=== PATIENT | female | born 1990 | race Caucasian/White ===

== ENCOUNTER 2022-09-17 11:01 | Emergency (ER) | payer BC, SELFPAY ==
[2022-09-17 11:21] VITALS: BP 137/94; PULSE 95; RESP 18; TEMP 36.6; O2SAT 99; BMI 23.0
--- NOTE | 2022-09-17 11:30 | ED_ITS ---
HPI - Female Genitourinary General Time Seen by Provider: 11:30 Date Seen: 09/17/22 Chief complaint: Urogenital Problems, Female Stated complaint: UTI Time Seen by Provider: 09/17/22 11:27 Source: patient, RN notes reviewed and old records reviewed Mode of arrival: ambulatory Limitations: no limitations History of Present Illness HPI Narrative: Toyin is a very pleasant 32-year-old female with a history of Ari's currently on control who comes to the emergency room with 7 days of left flank pain associated with urinary urgency. Patient notes that she had some left flank pain greater than a week ago and then had a day where she had which she thought was urinary urgency but was unable to urinate. She notes that she had a virtual visit on SundaySeptember 10 and at that time was placed on Macrobid for supposed UTI. She did not do a UA at that time. She notes that her symptoms did not enrique except perhaps the discomfort was somewhat improved. and thus she was seen at urgent care on September 14. Her urine was clear but given the fact that she had been treated with antibiotics she was switched to Bactrim and a culture was ordered. She comes to the emergency room today because she is not feeling better. She states she does not feel well. She can as continued left flank discomfort and urinary urgency. She has not noticed any blood in her urine. Yesterday she had a temperature up to 99.9 which she states is high for her. Otherwise no other reported fevers. She denies a history of kidney stones and adamantly denies any possibility of sexually transmitted infections. She denies vomiting diarrhea. She denies a possibility of . She notes some mild discomfort in her school pelvic area but no significant abdominal pain. He is just finishing her. At this time. Unfortunately no culture was done off of the 2nd urine according to the records that I am able to access. 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 Related Data Home Medications Medication Instructions Recorded Confirmed Bifidobacterium animalis 6 mg (5 6 mg PO QDAY 09/14/22 09/14/22 billion cell) capsule bupropion HCl 150 mg 24 hr tablet, 150 mg PO DAILY 09/14/22 09/14/22 extended release cholecalciferol (vitamin D3) 125 5,000 unit PO .As Needed PRN 09/14/22 09/14/22 mcg (5,000 unit) tablet cyanocobalamin (vitamin B-12) 1,000 mcg PO DAILY 09/14/22 09/14/22 1,000 mcg tablet diphenhydramine HCl 50 mg capsule 50 mg PO .Bedtime 09/14/22 09/14/22 ibuprofen 200 mg capsule mg PO .Q6h Prn 09/14/22 09/14/22 levothyroxine 100 mcg capsule mcg PO DAILY 09/14/22 09/14/22 melatonin 5 mg capsule 10 mg PO .Bedtime as needed PRN 09/14/22 09/14/22 nitrofurantoin 100 mg PO 09/14/22 09/14/22 monohydrate/macrocrystals 100 mg capsule phenazopyridine 200 mg tablet 200 mg PO 09/14/22 09/14/22 polyethylene glycol 3350 17 17 g PO .Daily as needed PRN 09/14/22 09/14/22 gram/dose oral powder sertraline 50 mg tablet 75 mg PO DAILY 09/14/22 09/14/22 ubrogepant 100 mg tablet 100 mg PO 09/14/22 09/14/22 zinc sulfate 50 mg zinc (220 mg) 50 mg PO DAILY 09/14/22 09/14/22 capsule Previous Rx's Medication Instructions Recorded norgestimate 0.25 mg-ethinyl 1 tab PO QDAY #84 tabs 08/15/22 estradiol 35 mcg tablet (Joan) sulfamethoxazole 800 1 tab PO BID 5 days #10 tabs 09/14/22 mg-trimethoprim 160 mg tablet (Bactrim DS) Allergies Allergy/AdvReac Type Severity Reaction Status Date / Time amoxicillin Allergy Severe Severe Verified 09/14/22 18:53 stomach pain cefaclor Allergy Mild Rash Verified 09/14/22 18:53 Clavulanate Allergy Severe Severe Uncoded 09/14/22 18:53 stomach pain Gluten Meal Allergy Severe Celiac Uncoded 09/14/22 18:53 disease Barium Allergy Mild Rash Uncoded 09/14/22 18:53 Review of Systems Status of ROS: Reports: 10 or more systems reviewed and unremarkable except as noted in History and below Const: Reports: fever (99.9 yesterday) and fatigue Eyes: Denies: change in vision ENMT: Denies: throat pain, throat swelling or hoarseness Cardio: Denies: chest pain, palpitations or swelling of feet/ankles GI: Denies: abdominal pain, nausea, vomiting or diarrhea : Reports: urinary frequency and urinary urgency; Denies: blood in urine Musculo: Reports: back pain (Left flank) Integ/Breast: Denies: rash Neuro: Denies: headache Endo: Reports: fatigue; Denies: excessive urination Allergy/Immuno: Denies: throat swelling PFSH PFS Medical History Aphthous ulcer Surgical History History of colonoscopy History of tympanostomy tube placement Family History Father Multiple sclerosis Other Alzheimers disease Depression High blood pressure Social History Narrative: Does not drink alcohol Does not use illicit drugs Non-smoker Smoking Status: Never smoker Do you use any of these nicotine containing products: None Second hand tobacco smoke exposure: No How often do you have a drink containing alcohol: never How often do you have six or more drinks on one occasion: Never AUDIT-C Alcohol total score: 0 Non-prescribed substance use: denies use service: No Exam Narrative: Exam Narrative: Toyin is alert and oriented. She does appear to be uncomfortable but does not appear to be toxic ears eyes nose clear neck is supple heart with regular rate and rhythm lungs are clear to auscultation. Abdomen is soft nontender. She does have tenderness with percussion over left CVA. She does have discomfort if I hit the bottom of her left foot the discomfort is in her left flank. No lower extremity edema Const: Vital Signs, click to edit/add: Vital Signs - 24 hr 09/17/22 11:21 Temperature 97.9 F Pulse Rate [Pulse Oximeter] 95 Respiratory Rate 18 Blood Pressure [Ri ght Upper Arm] 137/94 H Pulse Oximetry 99 Oxygen Delivery Me thod Room Air Documenting provider has reviewed patient's vital signs: yes Course Course Hospital Course: Patient presents with the onset of left flank pain and urinary symptoms. She does not really have fever at this time and her vital signs are reassuring but I am wondering if she has partially treated pyelonephritis. Other possibilities with this presentation do include STI but patient is adamant that there is no possibility of such a thing. Kidney stone is also in the differential. Would recommend placement of IV, normal saline 1 L, blood checks to include CBC, comprehensive panel, amylase, lipase, CRP, urinalysis. Ultrasound of the kidney also ordered at this time. Reevaluation(s) Reevaluation #1: Patient informed of normal ultrasound. Will proceed with abdominal CT with contrast given her ongoing flank pain. Reevaluation #2: Patient notes she is improved after Toradol. Vital Signs Vital signs: Initial Vital Signs Temperature 97.9 F 09/17/22 11:21 Temperature Source Temporal Artery Scan 09/17/22 11:21 Pulse Rate 95 09/17/22 11:21 Respiratory Rate 18 09/17/22 11:21 Blood Pressure 137/94 H 09/17/22 11:21 Blood Pressure Mean 108 09/17/22 11:21 Blood Pressure Position Supine 09/17/22 11:21 Pulse Oximetry 99 09/17/22 11:21 Oxygen Delivery Method 09/17/22 11:21 Vital Signs Temperature 97.9 F 09/17/22 11:21 Pulse Rate 95 09/17/22 11:21 Respiratory Rate 18 09/17/22 11:21 Blood Pressure 137/94 H 09/17/22 11:21 Pulse Oximetry 99 09/17/22 11:21 Oxygen Delivery Method 09/17/22 11:21 Temperature 97.9 F 09/17/22 11:21 Pulse Rate 95 09/17/22 11:21 Respiratory Rate 18 09/17/22 11:21 Blood Pressure 137/94 H 09/17/22 11:21 Pulse Oximetry 99 09/17/22 11:21 Oxygen Delivery Method 09/17/22 11:21 MDM - Female Genitourinary MDM Narrative Medical decision making narrative: 1. Left flank pain-no abnormalities noted on ultrasound or CT. Patient certainly describes urinary type symptoms initially and had been treated with Macrobid then switched to Bactrim and now we will make a switch to Cipro as Bactrim is causing her nausea. I do think she may be incomplete treatment of urinary tract infection although I do not not have any proof of that because will culture done previously and no your on the initial treatment. No evidence of abnormal ovary and blood flow was good. Patient denies any possibility of STI as she has never been sexually active. Like her to follow up with her primary MD if she is not improving over the next few days. Of course if she has worsening symptoms return to the emergency room. 2. Disposition-home at this time. She may use ibuprofen or Tylenol as needed for discomfort. Tests done today include blood work with normal WBC and CRP. Urinalysis without evidence of UTI. Abdominal CT without abnormality. Pelvic ultrasound without abnormality Medical Records Attestation: I reviewed the patient's medical records. Lab Data Attestation: I reviewed the patient's lab results. Labs: Lab Results 09/17/22 09/17/22 09/17/22 Range/Units 11:45 12:30 12:30 WBC 5.94 (4.50-11.00) K/uL RBC 4.99 (4.00-5.20) m/uL Hgb 15.2 (12.0-16.0) gm/dL Hct 44.5 (33.0-51.0) % MCV 89 (80-100) fL MCH 31 (26-34) pg MCHC 34 (32-36) gm/dL RDW Coeff of Reema 12.4 (11.5-15.5) % Plt Count 227 (140-440) K/uL Neut % (Auto) 70.7 (42.0-72.0) % Lymph % (Auto) 21.2 (20-44) % [place] % (Auto) 5.9 (0.0-11.0) % Eos % (Auto) 1.7 (0.0-7.0) % Baso % (Auto) 0.3 (0.0-3.0) % Neut # (Auto) 4.20 (1.7-7.0) K/uL Lymph # (Auto) 1.26 (0.90-2.90) K/uL [place] # (Auto) 0.40 (0.00-0.90) K/UL Eos # (Auto) 0.10 (0.00-0.50) K/uL Baso # (Auto) 0.02 (0.00-0.30) K/uL Abs Immat Gran (auto) 0.01 (0.00-0.30) K/uL Imm/Tot Granulo (auto) 0.2 % Sodium 139 (135-149) mmol/L Potassium 4.4 (3.6-5.1) mmol/L Chloride 106 (96-114) mmol/L Carbon Dioxide 25 (20-32) mmol/L BUN 8 (5-24) mg/dL Creatinine 0.9 (0.5-1.5) mg/dL Estimated Creat Clear 75.61 Estimated GFR 88 ml/min Glucose 90 (60-115) mg/dL Calcium 9.0 (8.4-10.6) mg/dL Total Bilirubin 0.6 (0.1-1.5) mg/dL AST 22 (12-35) U/L ALT 19 (4-35) U/L Alkaline Phosphatase 101 (40-150) U/L C-Reactive Protein < 0.5 L (0.5-1.0) mg/dL Total Protein 7.3 (6.0-8.3) g/dL Albumin 4.7 (3.3-5.0) g/dL Amylase 80 (18-89) U/L Lipase 46 (23-300) U/L Urine Color Yellow (Yellow) Urine Appearance Clear (Clear) Urine pH 8.5 (5.0-8.5) Ur Specific [place] 1.020 (1.000-1.030) Urine Protein Negative (Negative) Urine Glucose (UA) Negative (Negative) Urine Ketones Negative (Negative) Urine Blood Trace-intact A (Negative) Urine Nitrite Negative (Negative) Urine Bilirubin Negative (Negative) Urine Urobilinogen 0.2 (0.2-1.0) Ur Leukocyte Esterase Negative (Negative) Urine RBC 0-2 (0-2) Urine WBC 0-2 (0-5) Ur Squamous Epith Cells Moderate A (None-Few) Urine Bacteria None (None) Imaging Data renal us: Attestation: I have reviewed the pertinent imaging results. Radiologist's impression: Right kidney: 9.2 x 3.6 x 4.3 cm. Left kidney: 9.4 x 4.7 x 4.2 cm. Normal echotexture and cortex. No suspicious masses, stones, or hydronephrosis. Bladder: Normal in caliber and appearance. Color Doppler images demonstrate bilateral ureteral jets. IMPRESSION: Unremarkable renal ultrasound. CT scan - abdomen: Attestation: I have reviewed the pertinent imaging results. My impression: No acute findings Radiologist's impression: Uterus: 7 x 4 x 3 cm.? Normal echotexture of the myometrium.? No masses. A 1 cm nabothian cyst present. Endometrium: Transvaginal imaging was performed to better evaluate the endometrium.? Endometrial thickness measures 4 mm.? No sign of endometrial mass or fluid.? Right ovary not visualized secondary to bowel gas. Left ovary 2 x 2 x 1. No ovarian or adnexal masses. Normal arterial and venous blood flow is demonstrated in both ovaries. Cul-de-sac: No significant free fluid.? ? IMPRESSION: Unremarkable pelvic ultrasound. Specifically the left ovaries normal. No finding to explain left-sided pain. Discharge Plan Discharge Clinical Impression: Urinary urgency, Left flank pain Patient Disposition: Home, Self-Care Condition: Improved Additional Instructions: Discontinue Bactrim at this time. We will treat with Cipro for the next 5 days for presumed urinary tract infection. Because we do not have initial urine sample this is going to be challenging to know what bacteria we are dealing with. Recommend follow-up with your primary MD for recheck and of course if you have the onset of fever, worsening symptoms please return to the emergency room. Push fluids as much as possible. I believe your pharmacy closes soon and th erefore I will place this prescription in [facility]. Prescriptions: No Action nitrofurantoin monohyd/m-cryst 100 mg capsule 100 mg PO Label Comments: TAKE 1 CAPSULE BY MOUTH TWICE A DAY FOR 5 DAYS phenazopyridine 200 mg tablet 200 mg PO Label Comments: TAKE 1 TABLET BY MOUTH 3 TIMES A DAY NEEDED WITH OR AFTER MEALS, FOR UP TO 2 DAYS melatonin 5 mg capsule 10 mg PO .Bedtime as needed PRN levothyroxine 100 mcg capsule PO DAILY cholecalciferol (vitamin D3) 125 mcg (5,000 unit) tablet 5,000 unit PO .As Needed PRN zinc sulfate 50 mg zinc (220 mg) capsule 50 mg PO DAILY bupropion HCl 150 mg tablet extended release 24 hr 150 mg PO DAILY sertraline 50 mg tablet 75 mg PO DAILY polyethylene glycol 3350 17 gram/dose powder 17 g PO .Daily as needed PRN ibuprofen 200 mg capsule PO .Q6h Prn diphenhydramine HCl 50 mg capsule 50 mg PO .Bedtime Bifidobacterium animalis 6 mg (5 billion cell) capsule 6 mg PO QDAY cyanocobalamin (vitamin B-12) 1,000 mcg tablet 1,000 mcg PO DAILY Rx Instructions: Hasn't taken for about two months ubrogepant 100 mg tablet 100 mg PO sulfamethoxazole-trimethoprim [Bactrim DS] 800-160 mg tablet 1 tab PO BID 5 Days Qty: 10 0RF norgestimate-ethinyl estradiol [Joan] 0.25-35 mg-mcg tablet 1 tab PO QDAY Qty: 84 1RF Follow Up/Referrals: Domonique Rdz PA-C [Primary Care Provider] - Stand Alone Forms: [facility] Info Instructions
--- NOTE | 2022-09-17 11:38 | CRLHL7_ITS ---
For Patients: As a result of the Century Cures Act, medical imaging exams and procedure reports are released immediately into your electronic medical record. You may view this report before your referring provider. If you have questions, please contact your health care provider. INDICATION: LEFT FLANK PAIN TECHNIQUE: Ultrasound renal and bladder complete. Sweet-scale and color Doppler sonographic images were acquired of the kidneys and urinary bladder. COMPARISON: None. FINDINGS: Right kidney: 9.2 x 3.6 x 4.3 cm. Left kidney: 9.4 x 4.7 x 4.2 cm. Normal echotexture and cortex. No suspicious masses, stones, or hydronephrosis. Bladder: Normal in caliber and appearance. Color Doppler images demonstrate bilateral ureteral jets. IMPRESSION: Unremarkable renal ultrasound. Dictated by Chicho Toscano MD @ 09/17/2022 12:49:16 PM (Electronically Signed)
[2022-09-17 11:58] LABS: Appearance Urine Clear (Clear); Bilirubin Urine Negative (Negative); Blood Urine Trace-intact (Negative); Color Urine Yellow (Yellow); Glucose Urine Negative (Negative); Ketones Urine Negative (Negative); Leukocyte Esterase Urine Negative (Negative); Nitrite Urine Negative (Negative); Protein Urine Negative (Negative); Urobilinogen Urine 0.2 (0.2-1.0); pH Urine 8.5 (5.0-8.5)
[2022-09-17] MEDS: 0.9 % SODIUM CHLORIDE 1000 ml 1,000 ML IV (12:00)
[2022-09-17 12:14] LABS: RBC Urine 0-2 (0-2); Squamous Epithelial Cell Urine Moderate (None-Few); WBC Urine 0-2 (0-5)
--- NOTE | 2022-09-17 13:07 | CRLHL7_ITS ---
For Patients: As a result of the Century Cures Act, medical imaging exams and procedure reports are released immediately into your electronic medical record. You may view this report before your referring provider. If you have questions, please contact your health care provider. HISTORY: Left flank pain. TECHNIQUE: CT abdomen and pelvis with IV contrast. 64 mL Isovue 370 IV. COMPARISON: Renal ultrasound same day. CT abdomen and pelvis 03/19/2021. FINDINGS: Abdomen: No liver lesions. No bile duct dilation. No pancreatic mass or pancreatic duct dilation. Several subcentimeter hypodense lesions in the distal spleen are unchanged. Spleen size is normal. No adrenal nodules. Kidneys enhance symmetrically. No renal mass. No perinephric inflammatory change. No hydronephrosis. No dilated bowel. Appendix is unremarkable. No free fluid. No lymphadenopathy. Abdominal aorta is normal caliber. Pelvis: No lymphadenopathy. Musculoskeletal: Unremarkable. Lower chest: Unremarkable. IMPRESSION: No acute abnormality in the abdomen or pelvis. Please note that all CT scans at this facility use dose modulation, iterative reconstruction, and/or weight-based dosing when appropriate to reduce radiation dose to as low as reasonably achievable. Dictated by Yash Burns MD @ 09/17/2022 3:00:16 PM (Electronically Signed)
[2022-09-17 13:16] LABS: Albumin* 4.7 g/dL (3.3-5.0); Chloride* 106 mmol/L (96-114); Sodium* 139 mmol/L (135-149)
[2022-09-17 13:17] LABS: Potassium* 4.4 mmol/L (3.6-5.1)
[2022-09-17 13:19] LABS: Amylase* 80 U/L (18-89); Basophils Absolute Auto 0.02 K/uL (0.00-0.30); Basophils Percent Auto 0.3 % (0.0-3.0); Carbon Dioxide* 25 mmol/L (20-32); Eosinophils Percent Auto 1.7 % (0.0-7.0); Hematocrit 44.5 % (33.0-51.0); Hemoglobin* 15.2 gm/dL (12.0-16.0); Immature Granulocytes Abs Auto 0.01 K/uL (0.00-0.30); Immature Granulocytes Pct Auto 0.2 %; Lymphocytes Absolute Auto 1.26 K/uL (0.90-2.90); Lymphocytes Percent Auto 21.2 % (20-44); Mean Corpuscular HGB Conc 34 gm/dL (32-36); Mean Corpuscular Hemoglobin 31 pg (26-34); Mean Corpuscular Volume 89 fL (80-100); Monocytes Percent Auto 5.9 % (0.0-11.0); Neutrophils Percent Auto 70.7 % (42.0-72.0); Platelet Count* 227 K/uL (140-440); RDW Coefficient of Variation % 12.4 % (11.5-15.5); Red Blood Count 4.99 m/uL (4.00-5.20); White Blood Count* 5.94 K/uL (4.50-11.00)
[2022-09-17 13:20] LABS: Alanine Aminotransferase* 19 U/L (4-35); Alkaline Phosphatase* 101 U/L (40-150); Aspartate Amino Transferase* 22 U/L (12-35); Bilirubin Total* 0.6 mg/dL (0.1-1.5); Blood Urea Nitrogen* 8 mg/dL (5-24); Creatinine* 0.9 mg/dL (0.5-1.5); Est. Creatinine Clearance* 75.61; Estimated Glomerular Filt Rate 88 ml/min; Glucose* 90 mg/dL (60-115); Lipase* 46 U/L (23-300); Total Protein* 7.3 g/dL (6.0-8.3)
[2022-09-17 13:26] LABS: C Reactive Protein* < 0.5 mg/dL (0.5-1.0); Slide Review Reflex No
--- NOTE | 2022-09-17 15:48 | CRLHL7_ITS ---
For Patients: As a result of the Century Cures Act, medical imaging exams and procedure reports are released immediately into your electronic medical record. You may view this report before your referring provider. If you have questions, please contact your health care provider. INDICATION: Left flank pain. TECHNIQUE: Ultrasound pelvis transabdominal and transvaginal for better assessment or to better visualize the endometrium. Real-time sonographic images with spectral and color Doppler imaging of the ovaries were obtained. COMPARISON: None. FINDINGS: Uterus: 7 x 4 x 3 cm. Normal echotexture of the myometrium. No masses. A 1 cm nabothian cyst present. Endometrium: Transvaginal imaging was performed to better evaluate the endometrium. Endometrial thickness measures 4 mm. No sign of endometrial mass or fluid. Right ovary not visualized secondary to bowel gas. Left ovary 2 x 2 x 1. No ovarian or adnexal masses. Normal arterial and venous blood flow is demonstrated in both ovaries. Cul-de-sac: No significant free fluid. IMPRESSION: Unremarkable pelvic ultrasound. Specifically the left ovaries normal. No finding to explain left-sided pain. Dictated by Maciej Garza MD @ 09/17/2022 5:33:46 PM (Electronically Signed)
[2022-09-17] MEDS: KETOROLAC 15 MG/ML inj IVP (16:00)
== END 2022-09-17 18:00 | disposition home or self-care (01) ==
PROVIDERS: Emergency Provider Family Medicine; PCP Physician Assistant Medical
DX: R10.9 Unspecified abdominal pain (principal); R39.15 Urgency of urination
CPT/HCPCS: 36415; 74177; 76775; 76830; 76856; 80053; 81001; 82150; 83690; 85025; 86140; 87086; 93976; 96374; 99284; 99285; J1885; J7030; Q9967

== ENCOUNTER 2022-09-29 11:20 | Outpatient (CLI) | payer BC, SELFPAY | END 2022-09-29 11:21 | disposition home or self-care (01) | PROVIDERS: PCP Physician Assistant Medical; Visit Provider Physician Assistant Medical | DX: R39.15 Urgency of urination (principal) | CPT/HCPCS: 87086 ==

== ENCOUNTER 2023-04-02 19:36 | Outpatient (CLI) | payer BC, SELFPAY ==
--- NOTE | 2023-04-10 08:58 | W.PM.SLEEP ---
Sleep Study Details Details Interpreting Provider: David Date of Sleep Study: 04/02/23 Sleep Study Details: STUDY TYPE:? Home unattended ? BMI:? 22.9 ORDERING PROVIDER:Cate Monahan INDICATION:? Concerns about sleep apnea ? SLEEP SUMMARY:? 553.5 minutes monitored RESPIRATORY SUMMARY:? AHI 5.1, supine 7.4, left lateral 5.0, right lateral 3.9 Low oxygen 90 No snoring was recorded PERIODIC LIMB MOVEMENTS OF SLEEP:? Not recorded during home study CARDIAC:? Range 50-88, mean 61.8 IMPRESSION:? Mild obstructive sleep apnea with supine position dependency RECOMMENDATION: Depending on patient's symptoms treatment could include CPAP AutoSet 4-17, dental appliance and/or airway expansion surgery.
== END 2023-04-02 19:37 | disposition home or self-care (01) ==
LOC: SLEEP 19:36
PROVIDERS: PCP Family Medicine; Visit Provider Family Medicine
DX: G47.33 Obstructive sleep apnea (adult) (pediatric) (principal)
CPT/HCPCS: 95806

== ENCOUNTER 2023-05-07 14:21 | Outpatient (CLI) | payer BC, SELFPAY | END 2023-05-07 14:22 | disposition home or self-care (01) | LOC: FRMREF 14:22 | PROVIDERS: PCP Family Medicine; Visit Provider Family Medicine | DX: R40.0 Somnolence (principal) | CPT/HCPCS: 86663 ==

== ENCOUNTER 2023-09-14 16:26 | Outpatient (CLI) | payer BC, SELFPAY | END 2023-09-14 16:27 | disposition home or self-care (01) | LOC: NFLDREF 09-17 03:26 | PROVIDERS: PCP Family Medicine; Referring Provider Family Medicine; Visit Provider Family Medicine | DX: R30.0 Dysuria (principal); R09.89 Other specified symptoms and signs involving the circulatory and respiratory systems | CPT/HCPCS: 87086 ==

== ENCOUNTER 2023-10-29 15:29 | Outpatient (CLI) | payer BC, SELFPAY | END 2023-10-29 15:30 | disposition home or self-care (01) | LOC: FRMREF 15:29 | PROVIDERS: PCP Family Medicine; Visit Provider Family Medicine | DX: E03.9 Hypothyroidism, unspecified (principal); R61 Generalized hyperhidrosis | CPT/HCPCS: 84443 ==

== ENCOUNTER 2023-12-17 15:09 | Outpatient (CLI) | payer BC, SELFPAY ==
--- NOTE | 2023-12-17 15:30 | MR_ITS ---
Final Report Patient: HEMA SELF Facility:?[facility] Patient ID:?[id number] Site Patient ID:?[id number]. Site :?[id number] Study:?MRI Head WO-12/17/2023 3:57:05 PM Ordering Physician:ANTONIA Final Report: Indication: Migraine headaches. Technique: Noncontrast sagittal T1, axial FLAIR, T2, diffusion weighted sequences are provided. No comparisons. Findings: The ventricles, sulci and gyri are normal size, shape and contour for age. The midline structures are centrally located with no evidence of shift. There are no suspicious intra or extra-axial fluid collections. No region of restricted diffusion. Expected flow voids in the cavernous carotids and basilar artery. Moderate mucosal thickening within the ethmoid maxillary sinuses with milder inflammatory changes within the remainder of the paranasal sinuses. Impression: 1. No radiographic evidence of acute intracranial abnormalities. 2. Poly sinusitis. Dictated by Bandar Dalal MD @ 12/17/2023 4:46:01 PM (Electronic Signature)
== END 2023-12-17 15:10 | disposition home or self-care (01) ==
LOC: MRI 15:09
PROVIDERS: PCP Family Medicine; Visit Provider Family Medicine
DX: G43.009 Migraine without aura, not intractable, without status migrainosus (principal); R51.9 Headache, unspecified; J32.8 Other chronic sinusitis
CPT/HCPCS: 70551

== ENCOUNTER 2024-03-06 11:49 | Outpatient (CLI) | payer BC, SELFPAY ==
--- OUTSIDE RECORDS SUMMARY | 2024-03-06 11:52 | XMS_ITS | Continuity of Care Document ---
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 [email or web address] Not available 01/01/2024 15:54:03 Plan of Treatment Reminders Order Date Submit Date Provider Last Modified By Organization Details Last Modified Time Details Appointments None record ed. Lab None record ed. Referral None record ed. Procedures None record ed. Surgeries None record ed. Imaging None record ed. Medication Orders None record ed. Patient TargetsNo targets recorded. Patient Instructions Encounter Date Encounter Id Patient Instructions Last Modified By Organization Details Last Modified Time 01/01/2024 [id number] Total treatment time minutes today = 40 Next Visit Plan: Remeasure ROM. Followup again after vacation and once CT results are obtained. LV ROM = 32mm (best 33) Patient/Therapist Goals: tolerate dental appointments. Progress Note Date: 02/13 [email or web address] Not available 01/01/2024 15:52:32 Reason for Referral Neurologist Referral for Epi sodic migraine Referring Physician: Roseanne Shultz, Pain Management, Encounter Date: 12/18/2023 Results Created Date Observation Date Name Description Value Unit Range Abnormal Flag LastModifiedBy Organization Detail LastModifiedTime 03/06/[address], tempo ral bone, w/o contr ast No observ ation record ed. [place] [address], [place], [address], 12/19/2023 11:30:19 01/16/[address], tempo ral bone, w/o contr ast No observ ation record ed. [email or web address] [place] [address], [place], [address], 01/29/2024 09:35:37 Result Notes None recorded. Problems Name Status Onset Date Resolution Date Notes Provider Name and Address Organization Details Recorded Time Pain of right temporomandibu lar joint Active 2022 CLAUDIA MullerT [address], [place], [address], [facility] 3 15:52:15 Limited opening of mandible Active 2022 CLAUDIA MullerT [address], [place], [address], [place] [facility] 3 15:52:24 Jaw pain Active 2022 CLAUDIA MullerT [address], [place], [address], [place] [facility] 3 15:52:29 Episodic migraine Active 2023 Chiari malformation type I ROSEANNE SHULTZ BDS, [place] [address], [place], [address], [place] [facility] 4 09:48:42 Neck pain Active 2023 ROSEANNE SHULTZ BDS, [place] [address], [place], [address], [place] [facility] 4 09:48:27 Limitation of movement of temporomandibu lar joint Active 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 PREETANJALI KATIA, BDS, [place] [address], [place], [address], [place] [facility] 4 09:52:06 Bilateral temporomandibu lar joint pain Active 2023 YAEL GUERRAS, MS [address], [place], [address], [place] [facility] 4 09:52:27 Myofascial pain Active 2023 YEAL GUERRAS, MS [address], [place], [address], [facility] 4 11:30:48 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 Procedures Surgical History Date Name Laterality Status Provider Name and Address Organization Details Recorded Time 01/02/20 CT TMJ completed Luisa monroy [facility] 01/01/2024 18:38:08 01/01/20 78213: Therapeutic Exercise completed CLAUDIA MullerT [address], [place], [address], [facility] 01/01/2024 15:53:17 01/01/20 58153: Manual Therapy completed CLAUDIA MullerT [address], [place], [address], [facility] 01/01/2024 15:53:15 12/20/19 02693 - PT ReEval completed Ella Allen DPT [address], [place], [address], [facility] 12/19/2023 14:50:23 12/20/19 24 77386: Self Care/Home Management Training completed Ella Allen DPT [address], [place], [address], [facility] 12/20/2023 18:57:09 12/20/19 24 20469: Needle insertion(s) without injection(s), 1 or 2 muscle(s) completed Ella Allen DPT [address], [place], [address], [facility] 12/20/2023 18:57:05 12/20/19 24 03628: E-Stim - Direct Contact completed Ella Allen DPT [address], [place], [address], [facility] 12/20/2023 18:58:13 12/20/19 24 85612: Therapeutic Exercise completed Ella Allen DPT [address], [place], [address], [facility] 12/20/2023 18:56:49 12/04/19 24 24302: Therapeutic Exercise completed Ella Allen DPT [address], [place], [address], [facility] 12/04/2023 19:40:30 12/04/19 24 20056: Manual Therapy completed Ella Allen DPT [address], [place], [address], [facility] 12/04/2023 19:40:31 10/31/19 24 13521: Self Care/Home Management Training completed Ella Allen DPT [address], [place], [address], [facility] 10/31/2023 08:46:46 10/31/19 24 99289: Therapeutic Exercise completed Ella Allen DPT [address], [place], [address], [facility] 10/31/2023 08:47:44 10/31/19 24 61112: Neuromuscular Re-Education completed Ella Allen DPT [address], [place], [address], [facility] 10/31/2023 08:46:42 10/31/19 24 86793: Manual Therapy completed Ella Allen DPT [address], [place], [address], [facility] 10/31/2023 08:46:41 10/18/19 24 64865: Self Care/Home Management Training completed Ella Allen DPT [address], [place], [address], [facility] 10/18/2023 20:06:45 10/18/19 24 38419: Therapeutic Exercise completed Ella Allen DPT [address], [place], [address], [facility] 10/18/2023 20:07:23 10/18/19 24 84295: Manual Therapy completed Ella Allen DPT [address], [place], [address], [facility] 10/18/2023 20:07:16 10/02/20 23 02530 - PT Eval Moderate Complexity completed Ella Allen DPT [address], [place], [address], [facility] 10/02/2023 11:10:42 10/02/20 23 40564: Self Care/Home Management Training completed Ella Allen DPT [address], [place], [address], [facility] 10/02/2023 15:48:47 10/02/20 23 53749: Therapeutic Exercise completed CLAUDIA MullerT [address], [place], [address], [place] [facility] 10/02/2023 15:48:57 10/02/20 92067: Manual Therapy completed Ella Allen, DPT [address], [place], [address], [place] [facility] 10/02/2023 15:48:55 09/04/20 12232 - PT Eval Moderate Complexity cancelled Ella Allen, DPT [address], [place], [address], [place] [facility] 09/04/2023 10:22:47 09/04/20 92460: Self Care/Home Management Training cancelled Ella Allen, DPT [address], [place], [address], [place] [facility] 09/03/2023 16:22:18 09/04/20 30088: Therapeutic Exercise cancelled Ella Allen, DPT [address], [place], [address], [place] [facility] 09/03/2023 16:22:18 09/04/20 64099: Neuromuscular Re-Education cancelled Ella Allen, DPT [address], [place], [address], [place] [facility] 09/03/2023 16:22:18 09/04/20 48181: Manual Therapy cancelled Ella Allen, DPT [address], [place], [address], [place] [facility] 09/03/2023 16:22:18 09/04/20 39015: Therapeutic Activities cancelled Ella Allen, DPT [address], [place], [address], [place] [facility] 09/03/2023 16:22:18 Other completed Ella Allen, DPT [address], [place], [address], [facility] 10/02/2023 15:40:04 Imaging Results None recorded. Procedure Notes None recorded. Medical Equipment None Reported. Allergies Allergen ID Allergen Name Allergen Category Reaction Reaction Severity Criticality Documentation Date Start Date Code Code System Note Provider Name and Address Organization Details Recorded Time 50953 barium sulfate medicatio n abdominal pain moderate Not available 10/02/2023 1331 RxNorm Ella Hovda, DPT [address], [place], [address], [facility] 3 15:39:21 84768 Ceclor medicatio n rash moderate Not available 10/02/2023 30093 5 RxNorm Ella Hovda, DPT [address], [place], [address], [facility] 3 15:39:21 24354 Augmentin medicatio n abdominal pain severe Not available 10/02/2023 77110 2 RxNorm Ella Hovda, DPT [address], [place], [address], [facility] 3 15:39:21 62261 wheat gluten extract food Not available Not available Not available 12/18/2023 52218 81 RxNorm Lin Mayco [facility] 4 18:01:00 Medications Name Sig Start Date Stop Date Status Note LastModified by Organization Details LastModified Time methocarbam ol 500 mg tablet TAKE 3 TABLETS BY MOUTH EVERY 6 HOURS UNTIL GONE 11/20 completed Not Available Not Available Not Available doxycycline hyclate 100 mg capsule TAKE 1 CAPSULE BY MOUTH TWICE A DAY active Not Available Not Available No t Available famotidine 10 mg tablet 1 tablet every day by oral route. 2022 active Not Available Not Available Not Avai lable trazodone 50 mg tablet TAKE 1/2 TO 1 TABLET BY MOUTH ONCE DAILY. active Not Available Not Available No t Available azithromyci n 250 mg tablet TAKE 2 TABLETS BY MOUTH TODAY, THEN TAKE 1 TABLET DAILY FOR 4 DAYS DIRECTED 11/20 completed Not Available Not Available Not Available citalopram 10 mg tablet TAKE 1 TABLET BY MOUTH ONCE DAILY. 11/20 completed Not Available Not Available Not Available phenazopyri dine 200 mg tablet TAKE 1 TABLET BY MOUTH 3 TIMES A DAY NEEDED WITH OR AFTER MEALS, FOR UP TO 2 DAYS 12/17 completed Not Available Not Available Not Available prednisone 20 mg tablet TAKE 2 TABLETS BY MOUTH EVERY DAY FOR 5 DAYS 11/20 completed Not Available Not Available Not Available sulfamethox azole 800 mg-trimetho prim 160 mg tablet TAKE ONE TABLET BY MOUTH TWICE DAILY FOR 5 DAYS 11/20 completed Not Available Not Available Not Available levothyroxi ne 100 mcg tablet TAKE 1 TABLET BY MOUTH EVERY MORNING active Not Available Not Available No t Available propranolol 10 mg tablet TAKE 1 TABLET BY MOUTH THREE TIMES DAILY NEEDED FOR ANXIETY active Not Available Not Available No t Available citalopram 20 mg tablet TAKE 1 TABLET BY MOUTH EVERY DAY 11/20 completed Not Available Not Available Not Available famotidine 20 mg tablet TAKE 1 TABLET BY MOUTH DAILY active Not Available Not Available No t Available trazodone 100 mg tablet TAKE 1 TABLET BY MOUTH AT BEDTIME NEEDED FOR INSOMNIA active Not Available Not Available No t Available benzonatate 100 mg capsule TAKE 1 CAPSULE BY MOUTH TWICE A DAY NEEDED FOR COUGH 11/20 completed Not Available Not Available Not Available sertraline 25 mg tablet TAKE ONE TABLET BY MOUTH DAILY WITH 50MG TABLET (TOTAL DAILY DOSE 75MG) 11/20 completed Not Available Not Available Not Available Drysol Dab-O-Matic 20 % topical solution 1 APPLIC TOPICALLY TWICE A WEEK NEEDED FOR EXCESSIVE SWEATING active Not Available Not Available No t Available sertraline 50 mg tablet TAKE 1 TABLET BY MOUTH DAILY WITH 25MG FOR TOTAL DAILY DOSE OF 75MG PER DAY 11/20 completed Not Available Not Available Not Available eletriptan 40 mg tablet TAKE 1 TABLET BY MOUTH NEEDED FOR MIGRAINE. MAY REPEAT 1 TIME IN 2 OR MORE HOURS IF NEEDED 11/20 completed Not Available Not Available Not Available cyclobenzap rine 5 mg tablet TAKE 1 TABLET BY MOUTH EVERY DAY AT DINNER FOR 30 DAYS 02/04 completed Not Available Not Available Not Available bupropion HCl XL 150 mg 24 hr tablet, extended release TAKE ONE TABLET BY MOUTH IN THE MORNING active Not Available Not Available No t Available nitrofurant oin monohydrate /macrocryst als 100 mg capsule TAKE 1 CAPSULE BY MOUTH TWICE A DAY FOR 5 DAYS 11/20 completed Not Available Not Available Not Available levonorgest rel-ethinyl estrad 11/20 completed Not Available Not Available Not Available diazepam 2022 active Not Available Not Available Not Avai lable L norgest/E estradiol-E estrad 0.15 mg-30 mcg (84)/10 mcg(7) tabs,3mos TAKE 1 TABLET DAILY FOLLOWING THE ORDER ON BLISTER CARDS active Not Available Not Available No t Available desvenlafax ine succinate ER 50 mg tablet,exte nded release 24 hr TAKE ONE TABLET BY MOUTH ONCE DAILY 11/20 completed Not Available Not Available Not Available desvenlafax ine succinate ER 100 mg tablet,exte nded release 24 hr TAKE 1 TABLET BY MOUTH EVERY DAY active Not Available Not Available No t Available Tirosint 100 mcg capsule TAKE 1 CAPSULE BY MOUTH EVERY MORNING BEFORE BREAKFAST ON EMPTY STOMACH NEEDS APPT active Not Available Not Available No t Available vilazodone 20 mg tablet PLEASE SEE ATTACHED FOR DETAILED DIRECTION S 11/20 completed Not Available Not Available Not Available vilazodone 10 mg tablet WEEK 1: TAKE 1 TABLET BY MOUTH ONCE DAILY ( WITH SERTRALIN E 50MG TABLET) THEN START NEXT DOSE 11/20 completed Not Available Not Available Not Available desvenlafax ine ER 50 mg tablet,exte nded release 24 hr TAKE ONE TABLET BY MOUTH ONCE DAILY 11/20 completed Not Available Not Available Not Available bupropion HCl 150 mg tablet,12 hr sustained-r elease(smok ing deterrent) TAKE 1 TABLET BY MOUTH TWICE A DAY . SEPARATE DOSES BY AT LEAST 8 HOURS. APPOINTME NT NEEDED 11/20 completed Not Available Not Available Not Available Joan 0.25 mg-35 mcg tablet TAKE 1 TABLET BY MOUTH EVERY DAY 11/20 completed Not Available Not Available Not Available EluRyng 0.12 mg-0.015 mg/24 hr vaginal ring 1 VAG RING VAGINALLY EVERY [address] FOR ~4 WEEKS, THEN INSERT NEW RING 12/17 completed Not Available Not Available Not Available Ubrelvy 100 mg tablet TAKE 1 TAB BY MOUTH 1 TIME NEEDED. MAY REPEAT ANOTHER DOSE IN 2 HRS MAX 2 TABS/24 HOURS. active Not Available Not Available No t Available Vitals None Recorded Social History Question Answer Notes LastModified by Organizat ion Details LastModified Time Tobacco Smoking Status Never Smoker Ella Allen, DPT [address] [facility] [address], [place], [address], [facility] 10/02/2023 15:40:04 What Is Your Level Of Alcohol Consumption? None Information not available 10/02/2023 What Is Your Level Of Caffeine Consumption? Moderate Information not available 10/02/2023 Are You Currently Employed? Yes Information not available 10/02/2023 What Type Of Diet Are You Following? GLUTENFREE Information not available 10/02/2023 Do You Reside In Or Have You Traveled To An Area Where Ebola Virus Transmission Is Active? No Information not available 10/02/2023 What Is The Highest Grade Or Level Of School You Have Completed Or The Highest Degree You Have Received? 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 (0=no Pain, 10=pain As Bad As You Can Imagine) 0 Information not available 10/02/2023 What Number Best Describes How, During The Past Week, Pain Has Interfered With Your Enjoyment Of Life? (0=does Not Interfere, 10= Completely Interferes) 0 Information not available 10/02/2023 What Number Best Describes How, During The Past Week, Pain Has Interfered With Your General Activity? (0=does Not Interfere, 10=completely Interferes) 0 Information not available 10/02/2023 How Did Primary Problem Begin? 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 0 Information not available 10/02/2023 What Is Your Relationship Status? Single Information not available 10/02/2023 Do You Feel Stressed (tense, Restless, Nervous, Or Anxious, Or Unable To Sleep At Night)? [id number] Information not available 10/02/2023 Do You Use Any Illicit Or Recreational Drugs? No Information not available 10/02/2023 How Many Years Have You Smoked Tobacco? 0 Information not available 10/02/2023 Sex: Female Functional Status Question Answer Note LastModified by Organizat ion Details LastModified Time What is your exercise level? Occasional Information not available 10/02/2023 Mental Status None recorded. Family History Relationship Description Onset Age of this Age Resolved Age Notes Father Heart disease 63 Father Rheumatoid arthritis 50 Father Multiple sclerosis Medical History Condition Response Allergies/Hayfever Y Anxiety Disorder Y Autoimmune disease Y Other N Anemia Y Acid Reflux (GERD) Y Migraines Y Obstructive Sleep Apnea Y Thyroid Problems Y Depression Y Gynecological HistoryNo gynecological history recorded. Obstetrics History GPAL:G 0 P 0 0 0 0 Immunizations Vaccine Type Date Status Provider Name and Address Organization Details Recorded Time SARS-COV-2 (COVID-19) vaccine, UNSPECIFIED 09/15/2022 completed Ella Allen DPT [address], [address], [facility] 10/02/2023 15:40:04 Influenza, seasonal, injectable 08/15/2022 completed Ella Allen DPT [address], [address], [facility] 10/02/2023 15:40:04 Past Encounters Encounter ID Performer Location Encounter Start Date Encounter Closed Date Diagnosis/Indication Diagnosis SNOMED-CT Code [id number] JEF Muller [address] [place] [address] 12/04/2023 18:43:09 12/04/2023 19:55:44 Bilateral temporomandibular joint pain 8338019973725 9105 Episodic migraine 756684 5577287 06 Jaw pain 700067194 Limitation of movement of temporomandibular joint 85119179 Limited op ening of mandible 801460676 Neck pain 29464010 Pain of ri ght temporomandibular joint 7136258293130 9107 [id number] ROSEANNE SHULTZ, BDS, MS [place] [address] [place] [address] 12/18/2023 17:54:52 12/18/2023 18:43:49 Pain of right temporomandibular joint 7469357368924 9107 Bilateral temporomandibular joint pain 9117537074961 9105 Episodic migraine 918617 4351428 06 Limited op ening of mandible 016441312 Neck pain 24186811 Limitation of movement of temporomandibular joint 57878092 Myofascial pain 25310911 9 [id number] Ella Allen, DPT [place] [address] [place], [place] [address] 12/20/2023 18:08:05 12/20/2023 18:53:08 Bilateral temporomandibular joint pain 6069812868561 9105 Episodic migraine 543340 7446306 06 Jaw pain 554239547 Limitation of movement of temporomandibular joint 45642372 Limited op ening of mandible 930780003 Myofascial pain 61158900 9 Neck pain 58696385 Pain of ri ght temporomandibular joint 0287264266154 9107 [id number] Ella Allen, DPT [place] [address] [place] [address] 01/01/2024 14:40:47 01/01/2024 15:57:55 Bilateral temporomandibular joint pain 8628125257041 9105 Episodic migraine 670002 6362032 06 Jaw pain 999967505 Limitation of movement of temporomandibular joint 39415914 Limited op ening of mandible 585646825 Myofascial pain 89093205 9 Neck pain 06209206 Pain of ri ght temporomandibular joint 4024668722259 9107 Health Concerns Section Related Observation LastModified by Organization Detai ls LastModified Time None Recorded Concern Status LastModified by Organization Details LastModified Time None Recorded Payers Encounter Date Sequence Insurance Name Policy Number Policy Monae Covered Member ID Monae Member ID Guarantor Name 01/01/2024 1 [facility] [id number] Toyin Talley [id number] Toyin Gerri Notes Date Note Type Note Provider Name and Address Organization Details Recorded Time 01/01/2024 text/html HPI Notes: Pt reports her R masseter relaxed after DN last session but her L was more sore and is swollen along with sensitivity on the inner cheek. Ella Allen, DPT [address] [facility] [address], [place], [address], [facility] 01/01/2024 15:54:12 OBGyn Episode No OBEpisode recorded.
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
--- OUTSIDE RECORDS SUMMARY | 2024-03-06 11:53 | XMS_ITS | Continuity of Care Document ---
Author Organization [place] - [facility], [place] Address [address] [place] [address] Care Team Providers Care Policy Value Calculator Name Role Phone MAHTUR, SARAH Referring Provider Assessment Encounter Date Assessment Date Assessment LastModified by Organization Details LastModified Time 12/20/2023 12/20/2023 Reevaluation performed today to update and measure objective findings, modify goals as noted and modify POC frequency and duration. POC was modified today. Discussion of progress and new plan with patient with patient agreement. Patient is progressing with not much improvement yet. Her pain has been increased over the past month leading to more limitations in jaw opening and tolerance to chewing/speakin g. She is working with myself and Dr. Shultz now as well with a CT of her TMJs pending and recent head MRI showing inflamed sinuses. I am hopeful the results of all these efforts will provide more relief over the next month and we will continue PT to work on her remaining goals. Frequency: will be 2x/month, tapering as able for a total of 4 additional visits over 2 months. [email or web address] Not available 12/20/2023 19:01:26 Plan of Treatment Reminders Order Date Submit Date Provider Last Modified By Organization Details Last Modified Time Details Appointments None record ed. Lab None record ed. Referral None record ed. Procedures None record ed. Surgeries None record ed. Imaging None record ed. Medication Orders None record ed. Patient Targets Encounter Date Encounter Id Patient Goals Patient Target Last Modified By Organization Details Last Modified Time penitentiary goals (to be met in 6 weeks):*Patient will report improved score on JFWL by at least 10%, indicating clinically significant improvement in self-reported level of function to allow patient to safely achieve pre-onset level of function. 3/6=*Patient will demonstrate the ability to open jaw to 35mm IO without compensations, noticeable difficulty or pain greater than 2/10 to be allow for adequate jaw function for chewing food of all types and consistencies without compensation or difficulty. 3/6= [email or web address] Not available 12/19/2023 14:50:34 Patient Instructions Encounter Date Encounter Id Patient Instructions Last Modified By Organization Details Last Modified Time 12/20/2023 [id number] Total treatment time minutes today = 40 Next Visit Plan: Remeasure ROM. How was dry needling? LV ROM = 20mm (best 33) Patient/Therapist Goals: tolerate dental appointments. Progress Note Date: 02/13 [email or web address] Not available 12/20/2023 18:59:17 Reason for Referral Neurologist Referral for Epi sodic migraine Referring Physician: Roseanne Shultz, Pain Management, Encounter Date: 12/18/2023 Results Created Date Observation Date Name Description Value Unit Range Abnormal Flag LastModifiedBy Organization Detail LastModifiedTime 11/21/19 24 XR, ortho panto gram No observ ation record ed. Not Available 11/27/2023 17:07:45 12/19/[address], tempo ral bone, w/o contr ast No observ ation record ed. [place] [id number] [facility] [address], [place], [address], 12/19/2023 11:30:19 01/16/[address], tempo ral bone, w/o contr ast No observ ation record ed. [email or web address] [place] [id number] [facility] [address], [place], [address], 01/29/2024 09:35:37 Result Notes None recorded. Problems Name Status Onset Date Resolution Date Notes Provider Name and Address Organization Details Recorded Time Pain of right temporomandibu lar joint Active 2022 Ella Allen DPT [address] [facility] [address], [place], [address], [facility] 15:52:15 Limited opening of mandible Active 2022 Ella Allen, DPT [address], [place], [address], [place] [facility] 3 15:52:24 Jaw pain Active 2022 Ella Allen, DPT [address], [place], [address], [place] [facility] 3 15:52:29 Episodic migraine Active 2023 Chiari malformation type I YAEL GUERRAS, [place] [address], [place], [address], [facility] 4 09:48:42 Neck pain Active 2023 YAEL GUERRAS, [place] [address], [place], [address], [facility] 4 09:48:27 Limitation of movement of temporomandibu lar joint Active 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 YAEL GUERRAS, [place] [address], [place], [address], [place] [facility] 4 09:52:06 Bilateral temporomandibu lar joint pain Active 2023 YAEL GUERRAS, [place] [address], [place], [address], [facility] 4 09:52:27 Myofascial pain Active 2023 YAEL GUERRAS, MS [address], [place], [address], [place] [facility] 4 11:30:48 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 Procedures Surgical History Date Name Laterality Status Provider Name and Address Organization Details Recorded Time 01/02/20 [facility]/01/2024 18:38:08 01/01/20 69171: Therapeutic Exercise completed Ella Allen DPT [address], [place], [address], [facility] 01/01/2024 15:53:17 01/01/20 78349: Manual Therapy completed Ella Allen DPT [address], [place], [address], [facility] 01/01/2024 15:53:15 12/20/19 10161 - PT ReEval completed lEla Allen DPT [address], [place], [address], [facility] 12/19/2023 14:50:23 12/20/19 63821: Self Care/Home Management Training completed Ella Allen DPT [address], [place], [address], [facility] 12/20/2023 18:57:09 12/20/19 24 05810: Needle insertion(s) without injection(s), 1 or 2 muscle(s) completed Ella Allen DPT [address], [place], [address], [facility] 12/20/2023 18:57:05 12/20/19 24 49320: E-Stim - Direct Contact completed Ella Allen DPT [address], [place], [address], [facility] 12/20/2023 18:58:13 12/20/19 24 17564: Therapeutic Exercise completed Ella Hovda, DPT [address], [place], [address], [place] [facility] 12/20/2023 18:56:49 12/04/19 24 59761: Therapeutic Exercise completed Ella Allen, DPT [address], [place], [address], [place] [facility] 12/04/2023 19:40:30 12/04/19 24 58973: Manual Therapy completed Ella Allen, DPT [address], [place], [address], [place] [facility] 12/04/2023 19:40:31 10/31/19 24 58781: Self Care/Home Management Training completed Ella Allen, DPT [address], [place], [address], [place] [facility] 10/31/2023 08:46:46 10/31/19 24 20489: Therapeutic Exercise completed Ella Allen, DPT [address], [place], [address], [place] [facility] 10/31/2023 08:47:44 10/31/19 24 57946: Neuromuscular Re-Education completed Ella Allen DPT [address], [place], [address], [place] [facility] 10/31/2023 08:46:42 10/31/19 24 35146: Manual Therapy completed Ella Allen, DPT [address], [place], [address], [place] [facility] 10/31/2023 08:46:41 10/18/19 24 33237: Self Care/Home Management Training completed Ella Allen, DPT [address], [place], [address], [place] [facility] 10/18/2023 20:06:45 10/18/19 24 80427: Therapeutic Exercise completed Ella Hovda, DPT [address], [place], [address], [place] [facility] 10/18/2023 20:07:23 10/18/19 24 95311: Manual Therapy completed Ella Allen, DPT [address], [place], [address], [place] [facility] 10/18/2023 20:07:16 10/02/20 23 90549 - PT Eval Moderate Complexity completed Ella Allen, DPT [address], [place], [address], [place] [facility] 10/02/2023 11:10:42 10/02/20 23 43302: Self Care/Home Management Training completed Ella Allen, DPT [address], [place], [address], [place] [facility] 10/02/2023 15:48:47 10/02/20 60811: Therapeutic Exercise completed Ella Allen, DPT [address], [place], [address], [place] [facility] 10/02/2023 15:48:57 10/02/20 06056: Manual Therapy completed Ella Allen, DPT [address], [place], [address], [place] [facility] 10/02/2023 15:48:55 09/04/20 23 01793 - PT Eval Moderate Complexity cancelled Ella Allen, DPT [address], [place], [address], [place] [facility] 09/04/2023 10:22:47 09/04/20 23 87609: Self Care/Home Management Training cancelled Ella Allen, DPT [address], [place], [address], [place] [facility] 09/03/2023 16:22:18 09/04/20 23 19342: Therapeutic Exercise cancelled Ella Allen, DPT [address], [place], [address], [facility] 09/03/2023 16:22:18 09/04/20 23 88906: Neuromuscular Re-Education cancelled Ella Allen, DPT [address], [place], [address], [facility] 09/03/2023 16:22:18 09/04/20 23 69404: Manual Therapy cancelled Ella Allen, DPT [address], [place], [address], [facility] 09/03/2023 16:22:18 09/04/20 69610: Therapeutic Activities cancelled Ella Allen, DPT [address], [place], [address], [facility] 09/03/2023 16:22:18 Other completed Ella Allen, DPT [address], [place], [address], [facility] 10/02/2023 15:40:04 Imaging Results None recorded. Procedure Notes None recorded. Medical Equipment None Reported. Allergies Allergen ID Allergen Name Allergen Category Reaction Reaction Severity Criticality Documentation Date Start Date Code Code System Note Provider Name and Address Organization Details Recorded Time 53965 barium sulfate medicatio n abdominal pain moderate Not available 10/02/2023 1331 RxNorm Ella Heberta, DPT [address], [place], [address], [facility] 3 15:39:21 02039 Ceclor medicatio n rash moderate Not available 10/02/2023 52730 5 RxNorm Ella Heberta, DPT [address], [place], [address], [facility] 3 15:39:21 51180 Augmentin medicatio n abdominal pain severe Not available 10/02/2023 08599 2 RxNorm Ella Dangelopaigemabel, DPT [address] [facility] [address], [place], [address], [facility] 3 15:39:21 44165 wheat gluten extract food Not available Not available Not available 12/18/2023 93549 81 RxNorm Lin Mao [facility] 4 18:01:00 [...] Smoking Status Never Smoker Ella Allen, DPT [address] [facility] [address], [place], [address], [facility] 10/02/2023 15:40:04 [...] Or The Highest Degree You Have Received? 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 After A Garey Placement Information not available 10/02/2023 How Many Children Do You Have? 0 Information not available 10/02/2023 What Is Your Relationship Status? Single Information not available 10/02/2023 Do You Feel Stressed (tense, Restless, Nervous, Or Anxious, Or Unable To Sleep At Night)? [id number] Information not available 10/02/2023 Do You Use [...] vaccine, UNSPECIFIED 09/15/2022 completed Ella Allen DPT [address] [facility] [address], [place], [address], [facility] 10/02/2023 15:40:04 Influenza, seasonal, injectable 08/15/2022 completed Ella Allen DPT [address] [facility] [address], [place], [address], [facility] 10/02/2023 15:40:04 Past Encounters Encounter ID Performer Location Encounter Start Date Encounter Closed Date Diagnosis/Indication Diagnosis SNOMED-CT Code [id number] JEF Muller e [address] [place] [id number] 12/04/2023 18:43:09 12/04/2023 19:55:44 Bilateral temporomandibular joint pain 4496460595973 9105 Episodic migraine 459375 8596958 06 Jaw pain 108630155 Limitation of movement of temporomandibular joint 97274456 Limited op ening of mandible 414491279 Neck pain 36899921 Pain of ri ght temporomandibular joint 1024759480156 9107 [id number] ROSEANNE SHULTZ BDS, MS Herman e [address] [place] [id number] 12/18/2023 17:54:52 12/18/2023 18:43:49 Pain of right temporomandibular joint 4761375944451 9107 Bilateral temporomandibular joint pain 3236557528098 9105 Episodic migraine 001282 9185129 06 Limited op ening of mandible 482638212 Neck pain 46845351 Limitation of movement of temporomandibular joint 71640949 Myofascial pain 43820968 9 [id number] JEF Muller e [address] [place] [id number] 12/20/2023 18:08:05 12/20/2023 18:53:08 Bilateral temporomandibular joint pain 0697975302671 9105 Episodic migraine 036798 4951231 06 Jaw pain 620368592 Limitation of movement of temporomandibular joint 58601686 Limited op ening of mandible 381150871 Myofascial pain 65274392 9 Neck pain 81021698 Pain of ri ght temporomandibular joint 1781677668238 9107 Health Concerns Section Related Observation LastModified by Organization Detai ls LastModified Time None Recorded Concern Status LastModified by Organization Details LastModified Time None Recorded Payers Encounter Date Sequence Insurance Name Policy Number Policy Monae Covered Member ID Monae Member ID Guarantor Name 12/20/2023 1 [facility] [id number] Toyin Talley [id number] Toyin Talley Notes Date Note Type Note Provider Name and Address Organization Details Recorded Time 12/20/2023 text/html HPI Notes: Pt reports having a brain MRI due to continued headaches and nothing was found other than inflamed sinuses. Doing a course of 10 days of antibiotics. Still having more pain in R neck and jaw with limited opening. Will schedule a TMJ CT with insurance approval. Patient Reported Outcome [id number] (out of 80): 10/02=17. 3/=20 Ella Allen DPT [address] [facility] [address], [place], [address], [facility] 12/20/2023 19:01:44 OBGyn Episode No OBEpisode recorded.
== END 2024-03-06 11:50 | disposition home or self-care (01) ==
PROVIDERS: PCP Family Medicine; Visit Provider Family Medicine
DX: E03.8 Other specified hypothyroidism (principal); E06.3 Autoimmune thyroiditis
CPT/HCPCS: 84443

== ENCOUNTER 2024-05-23 12:15 | Outpatient (CLI) | payer BC, SELFPAY ==
--- OUTSIDE RECORDS SUMMARY | 2024-05-29 14:43 | XMS_ITS | Data Portability ---
Author Organization [place] [facility] Address [facility] [address] [place] [address] Care Team Providers Care Registration Manager Name Role Phone SARAH MATHUR Referring Provider [phone] Assessment Encounter Date Assessment Date Assessment LastModified [...] documentation was 40. Not available 12/19/2023 11:32:10 12/20/2023 12/20/2023 Reevaluation performed today to update and measure objective findings, modify goals as noted and modify POC frequency and duration. POC was modified today. Discussion of progress and new plan with patient with patient agreement. Patient is progressing with not much improvement yet. Her pain has been increased over the past month leading to more limitations in jaw opening and tolerance to chewing/speaking. She is working with myself and Dr. [...] 2 months. [email or web address] Not available 12/20/2023 19:01:26 01/01/2024 01/01/2024 Good response to DN R masseter with relaxation and improved opening from 22 last session to 32 today, unfortunately swelling has occurred on the L side that is slowly improving and no signs of infection are present - will continue to monitor and did not dry needle today. [email or web address] Not available 01/01/2024 15:54:03 01/02/2024 01/02/2024 Patient is prese nt today for CBCT scan. Patient was not seen by the rendering physician today. Cost of care was reviewed at today's visit. [email or web address] Not available 01/02/2024 17:03:25 02/05/2024 02/05/2024 This real time telemedicine visit with video was accomplished today at either patient preference or out of medical necessity due to community issues. The patient was verbally identified and written consent was obtained prior to our session. These sessions are not being recorded. Due to the nature of telemedicine the ability to do physical assessment was limited to what can be accomplished over a video and by patient instruction. Those limits are understood by the patient and myself. Impression is based on history, available information and physical findings accomplished with video assist. Today I reviewed the pathophysiology of this disorder, potential contributing factors and treatment options with the patient. We reviewed the findings of her CT. Findings include 1. 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 The findings are indicative of degenerative changes. 2. The narrow joint spaces may be related to disc displacement. If the patient remains symptomatic, an MRI is suggested for evaluation of the disc locations. The radiographic features are consistent with pansinusitis. For complete details regarding her imaging see the radiology report in their EHR. I have recommended her to see her PCP. Migraines have improved with propranolol. Diagnosis and treatment options were reviewed at today's appointment. I am continuing to recommend self-care and splint therapy at this time. The focus of care will be continued, gradual rehabilitation and pain management with occasional oral appliance adjustments as needed. Toyin will work with PT. [facility] policy requirements were shared with her today. She will work with her dentist and her primary care physician to get the necessary documentation. I suggested that (s)he return for follow-up care in 6 weeks. History today was obtained from the patient. The patient has 5+ diagnoses they would like to address. Their symptoms are chronic. This case is moderate complexity because of multiple diagnoses with chronic symptoms. Data reviewed included procedure documentation. Discussion with treatment team members after visit was necessary. Risk of complications include disease progression were discussed. Today time spent may have included a review of past records, history taking, review of diagnoses, contributing factors, treatment plan, diagnostic testing, prognosis, expectations, risks and complications of treatment/no treatment, discussions with other providers and completing documentation was 20. Not available 02/06/2024 13:14:52 Plan of Treatment Reminders Order Date Submit Date Provider Last Modified By Organization Details Last Modified Time Details Appointments None recorded. Lab None recorded. Referral neurologist referral 2023 024 Not available 11:31:11 Procedures None recorded. Surgeries None recorded. Imaging CT, temporal bone, w/o contrast 2023 024 [place] [facility], [place], [address], 11:31:11 Medication Orders None recorded. Patient Targets Encounter Date Encounter Id Patient Goals Patient Target Last Modified By Organization Details Last Modified Time long-term goals (to be met in 6 weeks):*Patient [...] By Organization Details Last Modified Time 12/18/2023 [id number] trigger point injection information Not available 12/19/2023 11:31:11 Three Jaw Exercises Not available 12/19/2023 11:31:11 12/20/2023 [id number] Total treatment time minutes today = 40 Next Visit Plan: Remeasure ROM. How was dry needling? LV ROM = 20mm (best 33) Patient/Therapist Goals: tolerate dental appointments. Progress Note Date: 02/13 [email or web address] Not available 12/20/2023 18:59:17 01/01/2024 [id number] Total treatment time minutes today = 40 [...] Range Abnormal Flag LastModifiedBy Organization Detail LastModifiedTime 11/28/19 24 11/28/2023 oral appli ance prepa ratio n* Type of appliance mandib ular stabil izatio n applia nce Not Available [facility] [address], [place], [address], 11/28/2023 09:55:51 11/21/19 24 XR, ortho panto gram No observ ation record ed. Not Available 11/27/2023 17:07:45 12/19/[address], tempo ral bone, w/o contr ast No observ ation record ed. [place] [address], [place], [address], 12/19/2023 11:30:19 01/16/[address], tempo ral bone, w/o contr ast No observ ation record ed. [email or web address] [place] [address], [place], [address], 01/29/2024 09:35:37 Result Notes None recorded. Problems Name Status Onset Date Resolution Date Notes Provider Name and Address Organization Details Recorded Time Pain of right temporomandibu lar joint Active 2022 CLAUDIA MullerT [address], [place], [address], [facility] 3 15:52:15 Limited opening of mandible Active 2022 CLAUDIA MullerT [address], [place], [address], [facility] 3 15:52:24 Jaw pain Active 2022 CLAUDIA MullerT [address], [place], [address], [facility] 3 15:52:29 Episodic migraine Active 2023 Chiari malformation type I ROSEANNE SHULTZ BDS, [place] [address], [place], [address], [facility] 4 09:48:42 Neck pain Active 2023 ROSEANNE SHULTZ BDS[place] [address], [place], [address], [facility] 4 09:48:27 Limitation of movement of temporomandibu lar joint Active 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 ROSEANNE SHULTZ BDS, [place] [address], [place], [address], [facility] 4 09:52:06 Bilateral temporomandibu lar joint pain Active 2023 ROSEANNE SHULTZ BDS, MS [address], [place], [address], [facility] 4 09:52:27 Myofascial pain Active 2023 ROSEANNE SHULTZ BDS, MS [address], [place], [address], [facility] 4 11:30:48 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 Procedures Surgical History Date Name Laterality Status Provider Name and Address Organization Details Recorded Time 01/02/20 CT TMJ completed Luisa monroy [facility] 01/01/2024 18:38:08 01/01/20 81379: Therapeutic Exercise completed Ella Allen DPT [address], [place], [address], [facility] 01/01/2024 15:53:17 01/01/20 37899: Manual Therapy completed Ella Allen DPT [address], [place], [address], [facility] 01/01/2024 15:53:15 12/20/19 24 63583 - PT ReEval completed Ella Allen DPT [address], [place], [address], [facility] 12/19/2023 14:50:23 12/20/19 24 09339: Self Care/Home Management Training completed Ella Allen DPT [address], [place], [address], [facility] 12/20/2023 18:57:09 12/20/19 24 18766: Needle insertion(s) without injection(s), 1 or 2 muscle(s) completed Ella Allen DPT [address], [place], [address], [facility] 12/20/2023 18:57:05 12/20/19 24 63827: E-Stim - Direct Contact completed Ella Allen DPT [address], [place], [address], [facility] 12/20/2023 18:58:13 12/20/19 24 78949: Therapeutic Exercise completed Ella Allen DPT [address], [place], [address], [facility] 12/20/2023 18:56:49 12/04/19 24 06161: Therapeutic Exercise completed Ella Allen DPT [address], [place], [address], [facility] 12/04/2023 19:40:30 12/04/19 24 22129: Manual Therapy completed Ella Allen, DPT [address], [place], [address], [facility] 12/04/2023 19:40:31 10/31/19 24 47304: Self Care/Home Management Training completed Ella Allen CLAUDIAT [address], [place], [address], [place] [facility] 10/31/2023 08:46:46 10/31/19 24 30463: Therapeutic Exercise completed Ella Allen, DPT [address], [place], [address], [place] [facility] 10/31/2023 08:47:44 10/31/19 24 57300: Neuromuscular Re-Education completed Ella Allen, DPT [address], [place], [address], [place] [facility] 10/31/2023 08:46:42 10/31/19 24 51739: Manual Therapy completed Ella Allen, DPT [address], [place], [address], [place] [facility] 10/31/2023 08:46:41 10/18/19 24 43549: Self Care/Home Management Training completed Ella Allen, CLAUDIAT [address], [place], [address], [place] [facility] 10/18/2023 20:06:45 10/18/19 24 90309: Therapeutic Exercise completed Ella Allen, DPT [address], [place], [address], [place] [facility] 10/18/2023 20:07:23 10/18/19 24 94097: Manual Therapy completed Ella Allen, DPT [address], [place], [address], [place] [facility] 10/18/2023 20:07:16 10/02/20 23 34212 - PT Eval Moderate Complexity completed Ella Allen, DPT [address], [place], [address], [place] [facility] 10/02/2023 11:10:42 10/02/20 23 87622: Self Care/Home Management Training completed Ella Allen, DPT [address], [place], [address], [facility] 10/02/2023 15:48:47 10/02/20 89457: Therapeutic Exercise completed Ella Allen, DPT [address], [place], [address], [facility] 10/02/2023 15:48:57 10/02/20 81242: Manual Therapy completed Ella Allen, DPT [address], [place], [address], [facility] 10/02/2023 15:48:55 09/04/20 70415 - PT Eval Moderate Complexity cancelled Ella Allen, DPT [address], [place], [address], [facility] 09/04/2023 10:22:47 09/04/20 99753: Self Care/Home Management Training cancelled Ella Allen, DPT [address], [place], [address], [facility] 09/03/2023 16:22:18 09/04/20 00117: Therapeutic Exercise cancelled Ella Allen, DPT [address], [place], [address], [facility] 09/03/2023 16:22:18 09/04/20 84725: Neuromuscular Re-Education cancelled Ella Allen, DPT [address], [place], [address], [facility] 09/03/2023 16:22:18 09/04/20 49927: Manual Therapy cancelled Ella Allen, DPT [address], [place], [address], [facility] 09/03/2023 16:22:18 09/04/20 23 32012: Therapeutic Activities cancelled Ella Allen, DPT [address], [place], [address], [place] [facility] 09/03/2023 16:22:18 Other completed Ella Allen, DPT [address], [place], [address], [facility] 10/02/2023 15:40:04 Imaging Results Imaging Date Name Status LastModified by Organization Details LastModified Time 11/21/2023 XR, orthopantogram completed Inform ation not available 11/27/2023 17:07:45 12/19/2023 CT, temporal bone, w/o contrast completed [place] [address], [place], [address], 12/19/2023 11:30:19 01/16/2024 CT, temporal bone, w/o contrast completed [email or web address] [facility] [facility] [address], [place], [address], 01/29/2024 09:35:37 Procedure Notes None recorded. Medical Equipment None Reported. Allergies Allergen ID Allergen Name Allergen Category Reaction Reaction Severity Criticality Documentation Date Start Date Code Code System Note Provider Name and Address Organization Details Recorded Time 71924 barium sulfate medicatio n abdominal pain moderate Not available 10/02/2023 1331 RxNorm Ella Heberta, DPT [address], [place], [address], [place] [facility] 3 15:39:21 45698 Ceclor medicatio n rash moderate Not available 10/02/2023 67255 5 RxNorm Ella Hovda, DPT [address], [place], [address], [place] [facility] 3 15:39:21 08144 Augmentin medicatio n abdominal pain severe Not available 10/02/2023 60613 2 RxNorm Ella Heberta, DPT [address] [facility] [address], [place], [address], [facility] 3 15:39:21 97328 wheat gluten extract food Not available Not available Not available 12/18/2023 57398 81 RxNorm Lin Mao [facility] 4 18:01:00 [...] and Address Organization Details Last Updated DateTime 157.48 cm 24.3 kg/m2 79053.7 9 g 75 /min 125 mm[Hg] 87 mm[Hg] Lin Mao [facility] 4 18:00:20 Date Recorded Body height Body mass index (BMI) Body weight Provider Name and Address Organization Details Last Updated DateTime 01/02/2024 157.48 cm 24.3 kg/m2 19892.79 g Aida Phan [facility] 01/02/2024 17:03:05 Date Recorded Body height Provider Name an d Address Organization Details Last Updated DateTime 02/05/[address]24 157[address] [facility] 02/05/2024 17:30:15 Social History Question Answer Notes LastModified by Organizat ion Details LastModified Time Tobacco Smoking Status Never Smoker Ella Allen, DPT [address] [facility] [address], [place], [address], [place] [facility] [...] Or The Highest Degree You Have Received? 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 After A [place] Placement Information not available 10/02/2023 How Many Children Do You Have? 0 Information not available 10/02/2023 What Is Your Relationship Status? Single Information not available 10/02/2023 Do You Feel Stressed (tense, Restless, Nervous, Or Anxious, Or Unable To Sleep At Night)? [id number] Information not available 10/02/2023 Do You Use Any Illicit Or Recreational Drugs? No Information not available 10/02/2023 How Many Years Have You Smoked Tobacco? 0 Information not available 10/02/2023 Sex: Unknown Functional Status Question Answer Note LastModified by [...] UNSPECIFIED 09/15/2022 completed Ella Allen DPT [address], [address], [facility] 10/02/2023 15:40:04 Influenza, split virus, trivalent, preservative 08/15/2022 susan Allen DPT [address], [address], [facility] 10/02/2023 15:40:04 Past Encounters Encounter ID Performer Location Encounter Start Date Encounter Closed Date Diagnosis/Indication Diagnosis SNOMED-CT Code [id number] Ella Allen DPT [facility] [address] [place] [address] 10/02/2023 13:40:53 10/02/2023 15:25:12 Pain of right temporomandibular joint 01476324744 791366 Limited op ening of mandible 376197851 Jaw pain 301449217 [id number] Ella Allen DPT [facility] [address] [place] [address] 10/18/2023 18:12:01 10/18/2023 19:02:44 Jaw pain 682918142 Limited op ening of mandible 458475040 Pain of ri ght temporomandibular joint 83813977512 335929 [id number] Ella Allen, [place] [address] [place] [address] 10/31/2023 07:56:37 10/31/2023 08:46:13 Jaw pain 185724507 Pain of ri ght temporomandibular joint 03292122950 437919 Limited op ening of mandible 128626108 [id number] ROSEANNE SHULTZ BDS, [place] [address] [place] [address] 11/20/2023 18:23:23 11/20/2023 19:28:56 Myofascial pain 332341233 Limited op ening of mandible 806503234 Episodic migraine 737446 74325 4106 Neck pain 18811370 Limitation of movement of temporomandibular joint 40046640 Bilateral temporomandibular joint pain 00104014970 255836 [id number] Ella Allen, [place] [address] [place] [address] 12/04/2023 18:43:09 12/04/2023 19:55:44 Bilateral temporomandibular joint pain 31107217855 825065 Episodic migraine 417583 74207 4106 Jaw pain 096764627 Limitation of movement of temporomandibular joint 42523183 Limited op ening of mandible 826428335 Neck pain 17781621 Pain of ri ght temporomandibular joint 46714384138 209778 [id number] YAEL GUERRAS, [facility] [address] [place] [address] 12/18/2023 17:54:52 12/18/2023 18:43:49 Pain of right temporomandibular joint 15667934667 479551 Bilateral temporomandibular joint pain 74287544447 029859 Episodic migraine 626282 09641 4106 Limited op ening of mandible 247345397 Neck pain 35347760 Limitation of movement of temporomandibular joint 89038329 Myofascial pain 82404684 9 [id number] Ella Allen [place] [address] [address] 12/20/2023 18:08:05 12/20/2023 18:53:08 Bilateral temporomandibular joint pain 65799922439 287377 Episodic migraine 839145 23984 4106 Jaw pain 409036288 Limitation of movement of temporomandibular joint 71421344 Limited op ening of mandible 695007514 Myofascial pain 40556812 9 Neck pain 21007964 Pain of ri ght temporomandibular joint 23238540849 569845 [id number] Ella Allen [place] [address] [address] 01/01/2024 14:40:47 01/01/2024 15:57:55 Bilateral temporomandibular joint pain 50108391227 659018 Episodic migraine 967292 91505 4106 Jaw pain 481874930 Limitation of movement of temporomandibular joint 50965390 Limited op ening of mandible 150640362 Myofascial pain 91617532 9 Neck pain 03305464 Pain of ri ght temporomandibular joint 34704785283 287360 [id number] [address],[facility] [place] [address] 01/02/2024 16:53:13 01/02/2024 17:00:31 Bilateral temporomandibular joint pain 17581994172 [id number] ROSEANNE SHULTZ BDS, [place] [address] [address] 02/05/2024 17:27:50 02/05/2024 19:05:23 Pain of right temporomandibular joint 60969634043 733386 Bilateral temporomandibular joint pain 37572972022 469014 Jaw pain 957179448 Myofascial pain 72774161 9 Episodic migraine 095132 11622 4106 Limited op ening of mandible 431634505 Neck pain 42353495 Limitation of movement of temporomandibular joint 43779590 Bilateral temporomandibular joint articular disc disorder 42348337166 242681 Health Concerns Section Related Observation LastModified by Organization Detai ls LastModified Time None Recorded Concern Status LastModified by Organization Details LastModified Time None Recorded Advance Directives Directive None Recorded Payers Encounter Date Sequence Insurance Name Policy Number Policy Monae Covered Member ID Monae Member ID Guarantor Name 12/18/2023 1 [facility] [id number] Toyin Corleyer [id number] Toyin Gerri 12/20/2023 1 [facility] [id number] Toyin Gerri [id number] Toyin Gerri 01/01/2024 1 [facility] [id number] Toyin Gerri [id number] Toyin Gerri 01/02/2024 1 [facility] [id number] Toyin Gerri [id number] Toyin Gerri 02/05/2024 1 [facility] [id number] Toyin Gerri [id number] Toyin Gerri Notes Date Note Type Note [...] would like a better understanding of the [facility] policy for the splint coverage. Ella [...] therapy twice a month. 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 Recently, she was hit with a volleyball on her left side of face that gave her a black eye. ROSEANNE SHULTZ BDS, [place] [address] [facility] [address], [place], [address], [facility] 12/19/2023 11:32:55 12/20/2023 text/html HPI Notes: Pt reports having a brain MRI due to continued headaches and nothing was found other than inflamed sinuses. Doing a course of 10 days of antibiotics. Still having more pain in R neck and jaw with limited opening. Will schedule a TMJ CT with insurance approval. Patient Reported Outcome [id number] (out of 80): 10/02=17. 12/19=20 Ella Allen, JEF [address] [facility] [address], [place], [address], [facility] 12/20/2023 19:01:44 01/01/2024 text/html HPI Notes: Pt reports her R masseter relaxed after DN last session but her L was more sore and is swollen along with sensitivity on the inner cheek. Ella Dangelopaigemabel, DPT [address] [facility] [address], [place], [address], [facility] 01/01/2024 15:54:12 01/02/2024 text/html HPI Notes: Get nt present in clinic for CT scan of bilateral TMJ. Took bilateral CT scan and sent scan to [facility] to be read. [facility] 01/02/2024 17:50:30 02/05/2024 text/html HPI Notes: gener al HPI for [...] Prior Treatment: physical therapy Prior opinion dentist As part of today's telehealth visit Verbal Consent to treat was obtained from the patient. The patient has been informed of what a Telehealth visit is: Telehealth is the practice of using telecommunication technology to evaluate, diagnose and care for patients at a distance. This telehealth visit is medically necessary due to patient choice, distance or to prevent the community spread of Covid-19. The patient was at home, while the provider was in the clinic. The patient has been informed that there is a potential for data loss due to technical failure. Security Measures: Multiple layers of technical and administrative security controls have been implemented to safeguard patient information. Unique, password protected visit IDs will be provided for each session. Communications are established using 256-bit TLS encryption and all shared content is encrypted with AES-256 encryption. Toyin is present to review her CT image, her jaw feels tired, not as much pain. She did have dry needling which was helpful. Headaches have improved. She is using her Propranolol nightly. ROSEANNE SHULTZ BDS, [place] [address], [place], [address], [facility] 02/06/2024 13:16:01 OBGyn Episode No OBEpisode recorded.
== END 2024-05-23 12:16 | disposition home or self-care (01) ==
LOC: NFLDREF 05-29 14:42
PROVIDERS: PCP Family Medicine; Referring Provider Family Medicine; Visit Provider Physician Assistant
DX: R35.0 Frequency of micturition (principal)
CPT/HCPCS: 87086

== ENCOUNTER 2024-06-10 11:10 | Outpatient (CLI) | payer BC, SELFPAY ==
--- OUTSIDE RECORDS SUMMARY | 2024-06-10 11:13 | XMS_ITS | Data Portability ---
Author Organization [place] [facility] [place] [facility] [address] [place] [address] Care Team Providers Care Show Jumping Instructor Name Role Phone SARAH MATHUR Referring Provider [...] as needed. Toyin will work with PT. [facility] policy requirements were shared with her today. [...] CT, temporal bone, w/o contrast 2023 [address] [place] Yadi Barba [facility], [place], [address], 11:31:11 Medication Orders None recorded. Patient Targets [...] By Organization Details Last Modified Time 12/18/2023 [id number] trigger point injection information Not available 12/19/2023 11:31:11 Three Jaw Exercises Not available 12/19/2023 11:31:11 12/20/2023 [id number] Total treatment time minutes today = 40 Next Visit Plan: Remeasure ROM. How was dry needling? LV ROM = 20mm (best 33) Patient/Therapist Goals: tolerate dental appointments. Progress Note Date: 02/13 [email or web address] Not available 12/20/2023 18:59:17 01/01/2024 [id number] Total treatment time minutes today = 40 [...] Name Description Value Unit Range Abnormal Flag Note LastModifiedBy Organization Detail LastModifiedTime 11/28/19 24 11/28/2023 oral appli ance prepa ratio n* Type of appliance mandib ular stabil izatio n applia nce Not Available [place] [address], [place], [address], 11/28/2023 09:55:51 11/21/19 24 XR, ortho panto gram No observ ation record ed. Not Available 2023 17:07:45 12/19/[address], tempo ral bone, w/o contr ast No observ ation record ed. [place] [id number], [place], [address], 12/19/2023 11:30:19 01/16/[address], tempo ral bone, w/o contr ast No observ ation record ed. [email or web address] [place] [address], [place], [address], 01/29/2024 09:35:37 Result Notes None recorded. Problems Name Problem SNOMED Code Status Onset Date Resolution Date Notes Provider Name and Address Organization Details Recorded Time Pain of right temporom andibula r joint 58988843083 992201 Active 2022 Ella Allen DPT [address], [address], [facility] 3 15:52:15 Limited opening of mandible 326690194 Active 2022 [facility] [address] [facility] [address], [address], [facility] 3 15:52:24 Jaw pain 174087293 Active 2022 Ella Allen DPT [address] [facility] [address], [address], [facility] 3 15:52:29 Episodic migraine 06364404178 4106 Active 2023 Chiari malformat ion type I ROSEANNE SHULTZ, BDS, [place] [address] [address], [place], [address], [facility] 4 09:48:42 Neck pain 79129638 Active 2023 ROSEANNE SHULTZ BDS, MS [address] [facility] [address], [place], [address], [facility] 4 09:48:27 Limitati on of movement of temporom andibula r joint 55945111 Active 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 ROSEANNE SHULTZ BDS, MS [address] [facility] [address], [place], [address], [facility] 4 09:52:06 Bilatera l temporom andibula r joint pain 66657213238 733381 Active 2023 ROSEANNE SHULTZ BDS, MS [address] [facility] [address], [place], [address], [facility] 4 09:52:27 Myofasci al pain 231894555 Active 2023 ROSEANNE SHULTZ BDS, MS [address] [facility] [address], [place], [address], [facility] 4 11:30:48 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 Procedures Surgical History Date Name Laterality Status Provider Name and Address Organization Details Recorded Time 01/02/20 CT TMJ completed Luisa monroy [facility] 01/01/2024 18:38:08 01/01/20 14513: Therapeutic Exercise completed Ella Allen DPT [address] [facility] [address], [place], [address], [facility] 01/01/2024 15:53:17 01/01/20 24 67329: Manual Therapy completed Ella Allen DPT [address], [place], [address], [facility] 01/01/2024 15:53:15 12/20/19 24 29517 - PT ReEval completed Ella Allen DPT [address], [place], [address], [facility] 12/19/2023 14:50:23 12/20/19 24 71205: Self Care/Home Management Training completed Ella Allen DPT [address], [place], [address], [facility] 12/20/2023 18:57:09 12/20/19 24 69917: Needle insertion(s) without injection(s), 1 or 2 muscle(s) completed Ella Allen DPT [address], [place], [address], [facility] 12/20/2023 18:57:05 12/20/19 24 87789: E-Stim - Direct Contact completed Ella Allen DPT [address], [place], [address], [facility] 12/20/2023 18:58:13 12/20/19 24 46431: Therapeutic Exercise completed CLAUDIA MullerT [address], [place], [address], [facility] 12/20/2023 18:56:49 12/04/19 24 91440: Therapeutic Exercise completed Ella Allen, DPT [address], [place], [address], [facility] 12/04/2023 19:40:30 12/04/19 24 25344: Manual Therapy completed Ella Hovda, DPT [address], [place], [address], [place] [facility] 12/04/2023 19:40:31 10/31/19 24 36688: Self Care/Home Management Training completed Ella Allen, DPT [address], [place], [address], [place] [facility] 10/31/2023 08:46:46 10/31/19 24 67906: Therapeutic Exercise completed Ella Allen, DPT [address], [place], [address], [place] [facility] 10/31/2023 08:47:44 10/31/19 24 96470: Neuromuscular Re-Education completed Ella Allen, DPT [address], [place], [address], [place] [facility] 10/31/2023 08:46:42 10/31/19 24 31257: Manual Therapy completed Ella Allen, DPT [address], [place], [address], [place] [facility] 10/31/2023 08:46:41 10/18/19 24 06305: Self Care/Home Management Training completed Ella Allen, DPT [address], [place], [address], [place] [facility] 10/18/2023 20:06:45 10/18/19 24 01029: Therapeutic Exercise completed Ella Allen, DPT [address], [place], [address], [place] [facility] 10/18/2023 20:07:23 10/18/19 24 50005: Manual Therapy completed Ella Allen, DPT [address], [place], [address], [place] [facility] 10/18/2023 20:07:16 10/02/20 23 33917 - PT Eval Moderate Complexity completed Ella Allen, DPT [address], [place], [address], [place] [facility] 10/02/2023 11:10:42 10/02/20 05078: Self Care/Home Management Training completed Ella Allen, DPT [address], [place], [address], [facility] 10/02/2023 15:48:47 10/02/20 02639: Therapeutic Exercise completed Ella Allen, DPT [address], [place], [address], [facility] 10/02/2023 15:48:57 10/02/20 36481: Manual Therapy completed Ella Allen, DPT [address], [place], [address], [facility] 10/02/2023 15:48:55 09/04/20 10510 - PT Eval Moderate Complexity cancelled Ella Allen, DPT [address], [place], [address], [facility] 09/04/2023 10:22:47 09/04/20 79260: Self Care/Home Management Training cancelled Ella Allen, DPT [address], [place], [address], [facility] 09/03/2023 16:22:18 09/04/20 98846: Therapeutic Exercise cancelled Ella Allen, DPT [address], [place], [address], [facility] 09/03/2023 16:22:18 09/04/20 45363: Neuromuscular Re-Education cancelled Ella Allen, DPT [address], [place], [address], [facility] 09/03/2023 16:22:18 09/04/20 23 19822: Manual Therapy cancelled Ella Allen, DPT [address] [facility] [employer] [address], [place], [address], [facility] 09/03/2023 16:22:18 09/04/20 23 23763: Therapeutic Activities cancelled Ella Allen, DPT [address] [facility], [place], [address], [facility] 09/03/2023 16:22:18 Other completed Ella Allen, DPT [address] [facility], [place], [address], [facility] 10/02/2023 15:40:04 Imaging Results Imaging Date Name Status LastModified by Organization Details LastModified Time 11/21/2023 XR, orthopantogram completed Inform ation not available 11/27/2023 17:07:45 12/19/2023 CT, temporal bone, w/o contrast completed [place] [address], [place], [address], 12/19/2023 11:30:19 01/16/2024 CT, temporal bone, w/o contrast completed [email or web address] [place] [address], [place], [address], 01/29/2024 09:35:37 Procedure Notes None recorded. Medical Equipment None Reported. Allergies Allergen ID Allergen Name Allergen Category Reaction Reaction Severity Criticality Documentation Date Start Date Code Code System Note Provider Name and Address Organization Details Recorded Time 94756 barium sulfate medicatio n abdominal pain moderate Not available 10/02/2023 1331 RxNorm Ella Allen, DPT [address], [place], [address], [facility] 15:39:21 75885 Ceclor medicatio n rash moderate Not available 10/02/2023 09448 5 RxNorm Ella Heberta, DPT [address] [facility] [address], [place], [address], [facility] 3 15:39:21 48573 Augmentin medicatio n abdominal pain severe Not available 10/02/2023 23175 2 RxNorm Ella Heberta, DPT [address] [facility] [address], [place], [address], [facility] 3 15:39:21 69128 wheat gluten extract food Not available Not available Not available 12/18/2023 51275 81 RxNorm Lin Mao [facility] [...] Last Updated DateTime 157.48 cm 24.3 kg/m2 35748.7 9 g 75 /min 125 mm[Hg] 87 mm[Hg] [facility] 18:00:20 Date Recorded Body height Body mass index (BMI) Body weight Provider Name and Address Organization Details Last Updated DateTime 01/02/2024 157.48 cm 24.3 kg/m2 15892.79 g Aida Phan [place] [facility] 01/02/2024 17:03:05 Date Recorded Body height Provider Name an d Address Organization Details Last Updated DateTime 02/05/2024 157.48 cm Leobardo Dumont [place] [facility] 02/05/2024 17:30:15 Social History Question Answer Notes LastModified by Organizat ion Details LastModified Time Tobacco Smoking Status Never Smoker Ella Allen, DPT [address] [facility] [address], [place], [address], [facility] [...] Or The Highest Degree You Have Received? 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 After A [place] Placement Information not available 10/02/2023 How Many Children Do You Have? 0 Information not available 10/02/2023 What Is Your Relationship Status? Single Information not available 10/02/2023 Do You Feel Stressed (tense, Restless, Nervous, Or Anxious, Or Unable To Sleep At Night)? [id number] Information not available 10/02/2023 Do You Use [...] Father Multiple sclerosis Medical History Condition Response Anxiety Disorder Y Allergies/Hayfever Y Autoimmune disease Y Other N Acid Reflux (GERD) Y Migraines Y Thyroid Problems Y Depression Y Anemia Y Obstructive Sleep Apnea Y Gynecological HistoryNo gynecological history recorded. Obstetrics History GPAL:G 0 P 0 0 0 0 Immunizations Vaccine Type Date Status Provider Name and Address Organization Details Recorded Time SARS-COV-2 (COVID-19) vaccine, UNSPECIFIED 09/15/2022 susan Allen DPT [address] [place] [address], [address], [facility] 10/02/2023 15:40:04 Influenza, split virus, trivalent, preservative 08/15/2022 completed Ella Allen DPT [address] [place] [address], [address], [facility] 10/02/2023 15:40:04 Past Encounters Encounter ID Performer Location Encounter Start Date Encounter Closed Date Diagnosis/Indication Diagnosis SNOMED-CT Code [id number] Ella Allen DPT [place] [address] [place] [address] 10/02/2023 13:40:53 10/02/2023 15:25:12 Pain of right temporomandibular joint 51630098457 543280 Limited op ening of mandible 178378974 Jaw pain 763707483 [id number] Ella Allen, [place] [address] [place] [address] 10/18/2023 18:12:01 10/18/2023 19:02:44 Jaw pain 687928038 Limited op ening of mandible 276838042 Pain of ri ght temporomandibular joint 88798685156 465756 [id number] Ella Allen, [place] [address] [place] [address] 10/31/2023 07:56:37 10/31/2023 08:46:13 Jaw pain 513311331 Pain of ri ght temporomandibular joint 97108775644 244784 Limited op ening of mandible 091558301 [id number] ROSEANNE SHULTZ BDS, [place] [address] [place] [address] 11/20/2023 18:23:23 11/20/2023 19:28:56 Myofascial pain 168197224 Limited op ening of mandible 163446244 Episodic migraine 604863 74450 4106 Neck pain 35043556 Limitation of movement of temporomandibular joint 16360735 Bilateral temporomandibular joint pain 41222942957 [id number] Ella Allen, [place] [address] [place] [address] 12/04/2023 18:43:09 12/04/2023 19:55:44 Bilateral temporomandibular joint pain 33082318154 205923 Episodic migraine 977671 07832 4106 Jaw pain 916687991 Limitation of movement of temporomandibular joint 99398554 Limited op ening of mandible 165669194 Neck pain 13120173 Pain of ri ght temporomandibular joint 03161854215 675043 [id number] ROSEANNE SHULTZ BDS, [facility] [address] [place] [address] 12/18/2023 17:54:52 12/18/2023 18:43:49 Pain of right temporomandibular joint 93416491445 369179 Bilateral temporomandibular joint pain 37248240171 103580 Episodic migraine 024715 00146 4106 Limited op ening of mandible 793728811 Neck pain 44615662 Limitation of movement of temporomandibular joint 52255086 Myofascial pain 25613850 9 [id number] Ella Allen, [place] [address] [place] [address] 12/20/2023 18:08:05 12/20/2023 18:53:08 Bilateral temporomandibular joint pain 49875277205 229993 Episodic migraine 388634 96328 4106 Jaw pain 709584471 Limitation of movement of temporomandibular joint 37443995 Limited op ening of mandible 497555416 Myofascial pain 08536724 9 Neck pain 67055964 Pain of ri ght temporomandibular joint 48228676014 399929 [id number] Ella Allen, [place] [address] [place] [address] 01/01/2024 14:40:47 01/01/2024 15:57:55 Bilateral temporomandibular joint pain 98553996214 625468 Episodic migraine 397875 40168 4106 Jaw pain 467096575 Limitation of movement of temporomandibular joint 89354796 Limited op ening of mandible 198163196 Myofascial pain 53734239 9 Neck pain 25498646 Pain of ri ght temporomandibular joint 22016323057 735924 [id number] [facility] [address] [place] [address] 01/02/2024 16:53:13 01/02/2024 17:00:31 Bilateral temporomandibular joint pain 18752208123 108260 [id number] ROSEANNE SHULTZ BDS, [place] [address] [place] [address] 02/05/2024 17:27:50 02/05/2024 19:05:23 Pain of right temporomandibular joint 65567825148 958812 Bilateral temporomandibular joint pain 00530570931 459831 Jaw pain 400838524 Myofascial pain 73001248 9 Episodic migraine 343021 73446 4106 Limited op ening of mandible 316249931 Neck pain 61959580 Limitation of movement of temporomandibular joint 84076838 Bilateral temporomandibular joint articular disc disorder 94012090938 205738 Health Concerns Section Related Observation LastModified by Organization Detai ls LastModified Time None Recorded Concern Status LastModified by Organization Details LastModified Time None Recorded Advance Directives Directive None Recorded Payers Encounter Date Sequence Insurance Name Policy Number Policy Monae Covered Member ID Monae Member ID Guarantor Name 12/18/2023 1 [employer] [id number] Toyin Gerri [id number] Toyin Gerri 12/20/2023 1 [employer] [id number] Toyin Gerri [id number] Toyin Gerri 01/01/2024 1 [employer] [id number] Toyin Gerri [id number] Toyin Gerri 01/02/2024 1 [employer] [id number] Toyin Gerri [id number] Toyin Gerri 02/05/2024 1 [employer] [id number] Toyin Gerri [id number] Toyin Gerri Notes Date Note Type Note [...] would like a better understanding of the [facility] policy for the splint coverage. Ella stated [...] therapy twice a month. 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 Recently, she was hit with a volleyball on her left side of face that gave her a black eye. ROSEANNE SHULTZ BDS, [place] [address] [facility] [address], [place], [address], [facility] 12/19/2023 11:32:55 [...] Reported Outcome JFLS-8 (out of 80): 10/02=17. 3/7=20 Ella Allen, CLAUDIAT [address] [facility] [address], [place], [address], [facility] 12/20/2023 19:01:44 01/01/2024 text/html HPI Notes: Pt reports her R masseter relaxed after DN last session but her L was more sore and is swollen along with sensitivity on the inner cheek. Ella Allen, CLAUDIAT [address] [facility] [address], [place], [address], [facility] 01/01/2024 15:54:12 01/02/2024 text/html HPI Notes: Patie nt present in clinic for CT scan of bilateral TMJ. Took bilateral CT scan and sent scan to [facility] to be read. [facility] 01/02/2024 17:50:30 [...] and all shared content is encrypted with [employer]-256 encryption. Toyin is present to review her CT image, her jaw feels tired, not as much pain. She did have dry needling which was helpful. Headaches have improved. She is using her Propranolol nightly. ROSEANNE SHULTZ BDS, MS [address] [facility] [address], [place], [address], [facility] 02/06/2024 13:16:01 OBGyn Episode No OBEpisode recorded.
== END 2024-06-10 11:11 | disposition home or self-care (01) ==
LOC: FRMREF 11:11
PROVIDERS: PCP Family Medicine; Visit Provider Family Medicine
DX: Z01.818 Encounter for other preprocedural examination (principal); E03.8 Other specified hypothyroidism; D50.9 Iron deficiency anemia, unspecified; E06.3 Autoimmune thyroiditis
CPT/HCPCS: 84443; 87086

== ENCOUNTER 2024-06-20 06:12 | Day surgery (SDC) | payer BC, SELFPAY ==
[2024-06-20] VITALS (49 sets, daily range): BP systolic 109–143; BP diastolic 64–98; PULSE 63–86; RESP 11–22; TEMP 36.1–37.2; O2SAT 82–99; BMI 25.0
--- OUTSIDE RECORDS SUMMARY | 2024-06-20 06:15 | XMS_ITS | Data Portability ---
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 Montalvo now as well with a CT of [...] as needed. Toyin will work with PT. [facility] policy requirements were shared with her [...] CT, temporal bone, w/o contrast 2023 024 [place] Yadi Barba [facility], [place], [address], 11:31:11 Medication Orders None recorded. Patient Targets Encounter Date Encounter Id Patient Goals Patient Target Last Modified By Organization Details Last Modified Time group home goals (to be met in 6 weeks):*Patient [...] By Organization Details Last Modified Time 12/18/2023 [id number] trigger point injection information Not available 12/19/2023 11:31:11 Three Jaw Exercises Not available 12/19/2023 11:31:11 12/20/2023 [id number] Total treatment time minutes today = 40 Next Visit Plan: Remeasure ROM. How was dry needling? LV ROM = 20mm (best 33) Patient/Therapist Goals: tolerate dental appointments. Progress Note Date: 02/13 [email or web address] Not available 12/20/2023 18:59:17 01/01/2024 [id number] Total treatment time minutes today = 40 Next Visit Plan: Remeasure ROM. Followup again after vacation and once CT results are obtained. LV ROM = 32mm (best 33) Patient/Therapist Goals: tolerate dental appointments. Progress Note Date: 02/13 [email or web address] Not available 01/01/2024 15:52:32 Reason for Referral Neurologist Referral for Epi sodic migraine Referring Physician: Roseanne Montalvo, Pain Management, Encounter Date: 12/18/2023 Results Created Date Observation Date Name Description Value Unit Range Abnormal Flag Note LastModifiedBy Organization Detail LastModifiedTime 11/28/19 24 11/28/2023 oral appli ance prepa ratio n* Type of appliance mandib ular stabil izatio n applia nce Not Available [place] [address], [place], [address], 11/28/2023 09:55:51 11/21/19 24 XR, ortho panto gram No observ ation record ed. Not Available 2023 17:07:45 12/19/[address], tempo ral bone, w/o contr ast No observ ation record ed. [place] [address], [place], [address], 12/19/2023 11:30:19 01/16/[address], tempo ral bone, w/o contr ast No observ ation record ed. [email or web address] [place] [address], [place], [address], 01/29/2024 09:35:37 Result Notes None recorded. Problems Name Problem SNOMED Code Status Onset Date Resolution Date Notes Provider Name and Address Organization Details Recorded Time Pain of right temporom andibula r joint 72030751610 691398 Active 2022 Ella Allen DPT [address], [address], [facility] 3 15:52:15 Limited opening of mandible 004342344 Active 2022 [facility] [address], [address], [facility] 3 15:52:24 Jaw pain 892967580 Active 2022 [facility]47 [facility] [address], [address], [facility] 3 15:52:29 Episodic migraine 47966041058 4106 Active 2023 Chiari malformat ion type I ROSEANNE MONTALVO, [place]DS, [place] [address] [address], [place], [address], [facility] 4 09:48:42 Neck pain 10322246 Active 2023 ROSEANNE MONTALVO BDS, MS [address] [facility] [address], [place], [address], [facility] 4 09:48:27 Limitati on of movement of temporom andibula r joint 93609851 Active 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 ROSEANNE MONTALVO BDS, MS [address] [facility] [address], [place], [address], [facility] 4 09:52:06 Bilatera l temporom andibula r joint pain 08400944676 258524 Active 2023 ROSEANNE MONTALVO BDS, MS [address] [facility] [address], [place], [address], [facility] 4 09:52:27 Myofasci al pain 323004066 Active 2023 ROSEANNE MONTALVO BDS, MS [address] [facility] [address], [place], [address], [facility] 4 11:30:48 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 Procedures Surgical History Date Name Laterality Status Provider Name and Address Organization Details Recorded Time 01/02/20 CT TMJ completed Luisa monroy [facility] 01/01/2024 18:38:08 01/01/20 22103: Therapeutic Exercise completed Ella Allen DPT [address] [facility] [address], [place], [address], [facility] 01/01/2024 15:53:17 01/01/20 24 66489: Manual Therapy completed Ella Allen DPT [address], [place], [address], [facility] 01/01/2024 15:53:15 12/20/19 24 94624 - PT ReEval completed Ella Allen DPT [address], [place], [address], [facility] 12/19/2023 14:50:23 12/20/19 24 69019: Self Care/Home Management Training completed Ella Allen DPT [address], [place], [address], [facility] 12/20/2023 18:57:09 12/20/19 24 34906: Needle insertion(s) without injection(s), 1 or 2 muscle(s) completed Ella Allen DPT [address], [place], [address], [facility] 12/20/2023 18:57:05 12/20/19 24 05800: E-Stim - Direct Contact completed Ella Allen DPT [address], [place], [address], [facility] 12/20/2023 18:58:13 12/20/19 24 93752: Therapeutic Exercise completed CLAUDIA MullerT [address], [place], [address], [facility] 12/20/2023 18:56:49 12/04/19 24 74024: Therapeutic Exercise completed Ella Allen, DPT [address], [place], [address], [facility] 12/04/2023 19:40:30 12/04/19 24 13897: Manual Therapy completed Ella Hovda, DPT [address], [place], [address], [place] [facility] 12/04/2023 19:40:31 10/31/19 24 29656: Self Care/Home Management Training completed Ella Allen, DPT [address], [place], [address], [place] [facility] 10/31/2023 08:46:46 10/31/19 24 05072: Therapeutic Exercise completed Ella Allen, DPT [address], [place], [address], [place] [facility] 10/31/2023 08:47:44 10/31/19 24 91129: Neuromuscular Re-Education completed Ella Allen, DPT [address], [place], [address], [place] [facility] 10/31/2023 08:46:42 10/31/19 24 45077: Manual Therapy completed Ella Allen, DPT [address], [place], [address], [place] [facility] 10/31/2023 08:46:41 10/18/19 24 26763: Self Care/Home Management Training completed Ella Allen, DPT [address], [place], [address], [place] [facility] 10/18/2023 20:06:45 10/18/19 24 22714: Therapeutic Exercise completed Ella Allen, DPT [address], [place], [address], [place] [facility] 10/18/2023 20:07:23 10/18/19 24 83120: Manual Therapy completed Ella Allen, DPT [address], [place], [address], [place] [facility] 10/18/2023 20:07:16 10/02/20 23 12378 - PT Eval Moderate Complexity completed Ella Allen, DPT [address], [place], [address], [place] [facility] 10/02/2023 11:10:42 10/02/20 55459: Self Care/Home Management Training completed Ella Allen, DPT [address], [place], [address], [facility] 10/02/2023 15:48:47 10/02/20 58000: Therapeutic Exercise completed Ella Allen, DPT [address], [place], [address], [facility] 10/02/2023 15:48:57 10/02/20 32828: Manual Therapy completed Ella Allen, DPT [address], [place], [address], [facility] 10/02/2023 15:48:55 09/04/20 04831 - PT Eval Moderate Complexity cancelled Ella Allen, DPT [address], [place], [address], [facility] 09/04/2023 10:22:47 09/04/20 57392: Self Care/Home Management Training cancelled Ella Allen, DPT [address], [place], [address], [facility] 09/03/2023 16:22:18 09/04/20 19146: Therapeutic Exercise cancelled Ella Allen, DPT [address], [place], [address], [facility] 09/03/2023 16:22:18 09/04/20 69839: Neuromuscular Re-Education cancelled Ella Allen, DPT [address], [place], [address], [facility] 09/03/2023 16:22:18 09/04/20 23 05598: Manual Therapy cancelled Ella Allen, DPT [address], [place], [address], [facility] 09/03/2023 16:22:18 09/04/20 23 74312: Therapeutic Activities cancelled Ella Allen, DPT [address], [place], [address], [facility] 09/03/2023 16:22:18 Other completed Ella Allen, DPT [address], [place], [address], [facility] 10/02/2023 15:40:04 Imaging Results Imaging Date Name Status LastModified by Organization Details LastModified Time 11/21/2023 XR, orthopantogram completed Inform ation not available 11/27/2023 17:07:45 12/19/2023 CT, temporal bone, w/o contrast completed [place] [address], [place], [address], 12/19/2023 11:30:19 01/16/2024 CT, temporal bone, w/o contrast completed [email or web address] [place] [address], [place], [address], 01/29/2024 09:35:37 Procedure Notes None recorded. Medical Equipment None Reported. Allergies Allergen ID Allergen Name Allergen Category Reaction Reaction Severity Criticality Documentation Date Start Date Code Code System Note Provider Name and Address Organization Details Recorded Time 52831 barium sulfate medicatio n abdominal pain moderate Not available 10/02/2023 1331 RxNorm Ella Allen, DPT [address], [place], [address], [facility] 15:39:21 59292 Ceclor medicatio n rash moderate Not available 10/02/2023 40823 5 RxNorm Ella Heberta, DPT [address] [facility] [address], [place], [address], [facility] 3 15:39:21 74493 Augmentin medicatio n abdominal pain severe Not available 10/02/2023 06963 2 RxNorm Ella Heberta, DPT [address] [facility] [address], [place], [address], [facility] 3 15:39:21 72249 wheat gluten extract food Not available Not available Not available 12/18/2023 53320 81 RxNorm Lin Mao [facility] 4 18:01:00 [...] Last Updated DateTime 157.48 cm 24.3 kg/m2 23439.7 9 g 75 /min 125 mm[Hg] 87 mm[Hg] [facility] 18:00:20 Date Recorded Body height Body mass index (BMI) Body weight Provider Name and Address Organization Details Last Updated DateTime 01/02/2024 157.48 cm 24.3 kg/m2 29392.79 g Aida Phan [facility] 01/02/2024 17:03:05 Date Recorded Body height Provider Name an d Address Organization Details Last Updated DateTime 02/05/2024 157.48 cm Leobardo Dumont [facility] 02/05/2024 17:30:15 Social History Question Answer Notes LastModified by Organizat ion Details LastModified Time Tobacco Smoking Status Never Smoker Ella Allen, DPT [address] [facility] [address], [place], [address], [facility] 10/02/2023 15:40:04 [...] Or The Highest Degree You Have Received? 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 After A [place] Placement Information not available 10/02/2023 How Many Children Do You Have? 0 Information not available 10/02/2023 What Is Your Relationship Status? Single Information not available 10/02/2023 Do You Feel Stressed (tense, Restless, Nervous, Or Anxious, Or Unable To Sleep At Night)? [id number] Information not available 10/02/2023 Do You Use [...] Allergies/Hayfever Y Autoimmune disease Y Other N Anemia Y Acid Reflux (GERD) Y Migraines Y Obstructive Sleep Apnea Y Thyroid Problems Y Depression Y Gynecological HistoryNo gynecological history recorded. Obstetrics History GPAL:G 0 P 0 0 0 0 Immunizations Vaccine Type Date Status Provider Name and Address Organization Details Recorded Time SARS-COV-2 (COVID-19) vaccine, UNSPECIFIED 09/15/2022 susan Allen DPT [address], [address], [facility] 10/02/2023 15:40:04 Influenza, split virus, trivalent, preservative 08/15/2022 susan Allen DPT [address], [address], [facility] 10/02/2023 15:40:04 Past Encounters Encounter ID Performer Location Encounter Start Date Encounter Closed Date Diagnosis/Indication Diagnosis SNOMED-CT Code Diagnosis ICD10 Code [id number] JEF Muller [address] [place] [address] 10/02/2023 13:40:53 10/02/2023 15:25:12 Pain of right temporomandibular joint 9753839974 3292144 M26.621 Limited op ening of mandible 553130962 M26.52 Jaw pain 439169882 R68.8 4 [id number] Ella Allen, DPT [place] [address] [place] [address] 10/18/2023 18:12:01 10/18/2023 19:02:44 Jaw pain 303126459 R68.84 Limited op ening of mandible 907144792 M26.52 Pain of ri ght temporomandibular joint 8221490002 8290196 M26.621 [id number] Ella Heberta, DPT [place] [address] [place] [address] 10/31/2023 07:56:37 10/31/2023 08:46:13 Jaw pain 886703217 R68.84 Pain of ri ght temporomandibular joint 7940347485 6270894 M26.621 Limited op ening of mandible 281301585 M26.52 [id number] PREETANJAL I KATIA, BDS, MS [place] [address] [place] [address] 11/20/2023 18:23:23 11/20/2023 19:28:56 Myofascial pain 279655826 M79.11 Limited op ening of mandible 614737061 M26.52 Episodic migraine 052504 8975 81642 G43.009 Neck pain 23682669 M54.2 Limitation of movement of temporomandibular joint 61112011 M26.52 Bilateral temporomandibular joint pain 3561376540 4601484 M26.623 [id number] Ella Allen, DPT [place] [address] [place] [address] 12/04/2023 18:43:09 12/04/2023 19:55:44 Bilateral temporomandibular joint pain 1945313965 8765063 M26.623 Episodic migraine 555589 0959 29309 G43.009 Jaw pain 587183412 R68.8 4 Limitation of movement of temporomandibular joint 09438064 M26.52 Limited op ening of mandible 397490146 M26.52 Neck pain 32761535 M54.2 Pain of ri ght temporomandibular joint 0763170327 3219357 M26.621 [id number] PREARTURO MONTALVO, BDS, MS [place] [address] [place] [address] 12/18/2023 17:54:52 12/18/2023 18:43:49 Pain of right temporomandibular joint 8673954897 0139748 M26.621 Bilateral temporomandibular joint pain 0081605068 4211392 M26.623 Episodic migraine 689134 3769 27331 G43.009 Limited op ening of mandible 572983741 M26.52 Neck pain 90073291 M54.2 Limitation of movement of temporomandibular joint 89961172 M26.52 Myofascial pain 15494384 9 M79.11 [id number] Ella Allen, DPT [place] [address] [place] [address] 12/20/2023 18:08:05 12/20/2023 18:53:08 Bilateral temporomandibular joint pain 7907264502 7581581 M26.623 Episodic migraine 735869 7242 37384 G43.009 Jaw pain 455563941 R68.8 4 Limitation of movement of temporomandibular joint 84318493 M26.52 Limited op ening of mandible 344657601 M26.52 Myofascial pain 88318139 9 M79.11 Neck pain 50786415 M54.2 Pain of ri ght temporomandibular joint 6574438104 3526069 M26.621 [id number] Ella Allen, DPT [place] [address] [place] [address] 01/01/2024 14:40:47 01/01/2024 15:57:55 Bilateral temporomandibular joint pain 2690644144 2318004 M26.623 Episodic migraine 084635 1826 39344 G43.009 Jaw pain 903942425 R68.8 4 Limitation of movement of temporomandibular joint 37417587 M26.52 Limited op ening of mandible 227274167 M26.52 Myofascial pain 97039161 9 M79.11 Neck pain 88791563 M54.2 Pain of ri ght temporomandibular joint 1425588746 3033710 M26.[id number],[facility]. [place] [address] 01/02/2024 16:53:13 01/02/2024 17:00:31 Bilateral temporomandibular joint pain 7862339978 2964570 M26.623 [id number] MILA MONTALVO BDS, [place] [address] [place] [address] 02/05/2024 17:27:50 02/05/2024 19:05:23 Pain of right temporomandibular joint 1908441773 3194264 M26.621 Bilateral temporomandibular joint pain 6175398141 4043771 M26.623 Jaw pain 304577282 R68.8 4 Myofascial pain 51125179 9 M79.11 Episodic migraine 937136 9419 18817 G43.009 Limited op ening of mandible 951507060 M26.52 Neck pain 70784221 M54.2 Limitation of movement of temporomandibular joint 33174137 M26.52 Bilateral temporomandibular joint articular disc disorder 5278202180 0287299 M26.633 Health Concerns Section Related Observation LastModified by Organization Detai ls LastModified Time None Recorded Concern Status LastModified by Organization Details LastModified Time None Recorded Advance Directives Directive None Recorded Payers Encounter Date Sequence Insurance Name Policy Number Policy Monae Covered Member ID Monae Member ID Guarantor Name 12/18/2023 1 [facility] [id number] Toyin Talley [id number] Toyin Talley 12/20/2023 1 [facility] [id number] Toyin Talley [id number] Toyin Talley 01/01/2024 1 [facility] [id number] Toyin Talley [id number] Toyin Talley 01/02/2024 1 [facility] [id number] Toyin Talley [id number] Toyin Talley 02/05/2024 1 [facility] [id number] Toyin Talley [id number] Toyin Talley Notes Date Note Type Note [...] would like a better understanding of the [facility] policy for the splint coverage. Ella [...] before she had permanent crown done. Dr. Mathur S then made the referral for Toyin to [...] therapy twice a month. 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 Recently, she was hit with a volleyball on her left side of face that gave her a black eye. ROSEANNE MONTALVO BDS, MS [address] [facility] [address], [place], [address], [facility] 12/19/2023 11:32:55 [...] JFLS-8 (out of 80): 10/02=17. 3/7=20 Ella Allen DPT [address] [facility] [address], [place], [address], [facility] 12/20/2023 19:01:44 01/01/2024 text/html HPI Notes: Pt reports her R masseter relaxed after DN last session but her L was more sore and is swollen along with sensitivity on the inner cheek. Ella Allen DPT [address] [facility] [address], [place], [address], [facility] 01/01/2024 15:54:12 01/02/2024 text/html HPI Notes: Gte nt present in clinic for CT scan of bilateral TMJ. Took bilateral CT scan and sent scan to Bertha to be read. Beto monroy [facility] 01/02/2024 17:50:30 [...] shared content is encrypted with AES-256 encryption. Toyni is present to review her CT image, her jaw feels tired, not as much pain. She did have dry needling which was helpful. Headaches have improved. She is using her Propranolol nightly. ROSEANNE MONTALVO BDS, MS [address] [facility] [address], [place], [address], [facility] 02/06/2024 13:16:01 OBGyn Episode No OBEpisode recorded.
[2024-06-20] MEDS: LACTATED RINGERS 1000 ML 1,000 ML 100 ML IV (06:40)
[2024-06-20] MEDS: SODIUM CHLORIDE 0.9 % (FLUSH) 10 ML SYRINGE IVF (06:43)
[2024-06-20] MEDS: OXYMETAZOLINE 0.05% NASAL SPRAY 2 SPRAY NOSTRIL-B (07:00)
--- NOTE | 2024-06-20 07:26 | W.ANESCHARGE ---
Anesthesia Charges Start Date/Time Anesthesia Start Date: 06/20/24 Anesthesia Start Time: 07:24 Stop Date/Time Anesthesia Stop Date: 06/20/24 Anesthesia Stop Time: 08:32
--- NOTE | 2024-06-20 07:27 | SUR.PREOP ---
Pt denied HCG lab, verbalized I am not , I am not sexually active. refusal form signed and lab order canceled.
[2024-06-20] MEDS: COCAINE HCL 4 % 4 ML SOLUTION NOSTRIL-B (07:40)
[2024-06-20] MEDS: BUPIVACAINE 0.5 %/EPI 1:200K 30 ML INJECTION (07:55)
[2024-06-20] MEDS: MUPIROCIN 1 GM PACKET 1 APPLIC TOPICAL (07:55)
[2024-06-20] MEDS: AYR SALINE NASAL GEL 1 APPLIC NOSTRIL-B (08:00)
[2024-06-20] MEDS: ALBUTEROL SULFATE 2.5 MG/3 ML VIAL.NEB NEB (09:10)
--- NOTE | 2024-06-20 09:12 | W.ANESCHARGE ---
Anesthesia Charges Start Date/Time Anesthesia Start Date: 06/20/24 Anesthesia Start Time: 07:24 Stop Date/Time Anesthesia Stop Date: 06/20/24 Anesthesia Stop Time: 08:32
[2024-06-20] MEDS: RACEPINEPHRINE HCL 0.5 ML VIAL.NEB NEB (09:28)
--- NOTE | 2024-06-20 09:28 | CRLHL7_ITS ---
For Patients: As a result of the Cures Act, medical imaging exams and procedure reports are released immediately into your electronic medical record. You may view this report before your referring provider. If you have questions, please contact your health care provider. INDICATION: Difficulty breathing, low sats TECHNIQUE: 1 view chest radiograph COMPARISON: 08/31/2023 FINDINGS: Devices: None. Lung volumes are moderate. Right middle lobe opacity. No pleural effusion. No pneumothorax. Heart size is normal. IMPRESSION: Right middle lobe opacity. Could be aspiration given a recent operation. Dictated by Anjana Peterson MD @ 06/20/2024 9:45:32 AM (Electronically Signed)
[2024-06-20] MEDS: fentaNYL 100 MCG/2 ML inj 50 MCG IVP (10:29)
--- NOTE | 2024-06-20 11:05 | PM.IMCN1 ---
Date of Consult Patient: [facility] Patient Consult date: 06/20/24 Requesting Physician: Other (ENT) Primary Care Provider: Ashley Monahan MD Consult Narrative Reason for consult: Post-op hypoxia s/p aspiration event Narrative: Toyin Talley is a 34 year old woman who underwent an elective septoplasty, right kiya bullosa resection, ethmoidectomy, maxillary antrostomy and sphenoid surgery on 06/20/[address] Melton at [facility]. Did well intraoperatively. Sometime during the post-operative time she suddenly became hypoxic, with loose sounding cough which she did not have pre-operatively. RA SaO2 in the 90s pre-operatively, then low 80s post-operatively, improved to mid-90s with O2 supplementation. Chest x-ray demonstrated RML infiltrate. Admitted for observation, oxygen support, empiric antibiotic treatment, and bronchodilator therapy. Dr. Melton will continue with her post-operative treatments. I darius continue with her baseline medications. Review of Systems Status of ROS: Reports: 6 or more systems reviewed and unremarkable except as noted in History and below Narrative: Anxious, acute on chronic. Denies chest heaviness, tightness, pain. With oxygen on she denies SOB. Denies N/V, abdominal pain. Otherwise doing well. [facility] Medical History Chiari malformation Hyperlipidemia ?E78.5 - Hyperlipidemia, unspecified (ICD-10) Hypothyroidism ?E03.9 - Hypothyroidism, unspecified (ICD-10) Irritable bowel syndrome ?K58.9 - Irritable bowel syndrome without diarrhea (ICD-10) Migraine headache ?G43.909 - Migraine, unspecified, not intractable, without status migrainosus (ICD-10) Seasonal allergic rhinitis ?J30.2 - Other seasonal allergic rhinitis (ICD-10) Anxiety ?F41.9 - Anxiety disorder, unspecified (ICD-10) Globus sensation ?R09.89 - Other specified symptoms and signs involving the circulatory and respiratory systems (ICD-10) Depression ?F32.A - Depression, unspecified (ICD-10) Seasonal allergies ?J30.2 - Other seasonal allergic rhinitis (ICD-10) Elevated blood pressure reading ?R03.0 - Elevated blood-pressure reading, without diagnosis of hypertension (ICD-10) Generalized hyperhidrosis ?R61 - Generalized hyperhidrosis (ICD-10) Sinusitis ?J32.9 - Chronic sinusitis, unspecified (ICD-10) Urinary hesitancy ?R39.11 - Hesitancy of micturition (ICD-10) Aphthous ulcer ?K12.0 - Recurrent oral aphthae (ICD-10) Surgical History History of tympanostomy tube placement ?Z96.22 - Myringotomy tube(s) status (ICD-10) History of colonoscopy ?Z98.890 - Other specified postprocedural states (ICD-10) Family History Father Multiple sclerosis Other Alzheimers disease Depression High blood pressure Social History Narrative: Does not drink alcohol Does not use illicit drugs Non-smoker Smoking Status: Never smoker Do you use any of these nicotine containing products: None Second hand tobacco smoke exposure: No How often do you have a drink containing alcohol: never How often do you have six or more drinks on one occasion: Never AUDIT-C Alcohol total score: 0 Non-prescribed substance use: denies use Caffeine: Yes (1 can DrJuan M Pepper/day) Little interest or pleasure in doing things: more than half the days Feeling down, depressed, or hopeless: more than half the days Are you using contraception or practicing any form of control: Yes service: No Meds Home Medications and Allergies Home Medications ?Medication ?Instructions ?Recorded ?Confirmed ?Type melatonin 5 mg capsule 10 mg PO .Bedtime as needed PRN 09/14/22 06/20/24 History diazepam suppository 5 mg vaginal DAILY PRN 05/07/23 06/20/24 History fluticasone propionate 50 2 spray intranasal QDAY PRN 05/07/23 06/20/24 History mcg/actuation nasal spray,suspension (Flonase Allergy Relief) ubrogepant 100 mg tablet (Ubrelvy) mg PO BID PRN 12/07/23 06/10/24 History propranolol 10 mg tablet 10 mg PO QHS for anxiety 06/10/24 06/20/24 History trazodone 100 mg tablet 150 mg PO QHS insomnia 06/10/24 06/20/24 History bisacodyl 5 mg tablet,delayed 5 mg PO BID PRN 06/20/24 06/20/24 History release (Dulcolax (bisacodyl)) scopolamine base 1 mg over 3 days 1 patch transdermal Q3D PRN 06/20/24 06/20/24 History transdermal patch Allergies Allergy/AdvReac Type Severity Reaction Status Date / Time amoxicillin Allergy Severe Severe Verified 06/20/24 06:28 stomach pain cefaclor Allergy Mild Rash Verified 06/20/24 06:28 Clavulanate Allergy Severe Severe Uncoded 06/10/24 10:58 stomach pain Gluten Meal Allergy Severe Celiac Uncoded 06/10/24 10:58 disease Barium Allergy Mild Rash Uncoded 06/10/24 10:58 Exam Narrative: Exam Narrative: I examine her in the post-anesthesia care unit. She appears anxious. Sitting in exam table with head of bed elevated 45 degrees. Oxygen delivered with facemask at 10 LPM, with SaO2 95%, RR22. Loose sounding cough. A, O x 4. Friendly, cooperative. Midline trachea. Supple neck. No JVD or HJR. Lungs clear but with scattered ronchi and decreased breath sounds RLL. Heart tones with regular rhythmn, nl S1S2, without murmur, gallop, or rub. Abdomen with active bowel sounds, soft, non-tender. Extremities without edema. Capillary refill of upper and lower digits less than 3 seconds. No focal motor deficits. Skin intact. Const: Vital Signs, click to edit/add: Vital Signs - 24 hr 06/20/24 06:41 06/20/24 08:28 06/20/24 08:30 Temperature 98.3 F 97.2 F L Pulse Rate 68 80 86 Respiratory Rate 16 20 14 Blood Pressure 129/90 H 141/96 H 132/79 Pulse Oximetry 97 90 91 Oxygen Delivery Me thod Room Air Blow By Blow By Oxygen Flow Rate 10 10 06/20/24 08:35 06/20/24 08:40 06/20/24 08:45 Temperature 97.8 F Pulse Rate 80 80 73 Respiratory Rate 14 16 16 Blood Pressure 132/79 129/64 125/77 Pulse Oximetry 91 94 91 Oxygen Delivery Me thod Blow By Blow By Blow By Oxygen Flow Rate 10 10 5 06/20/24 08:50 06/20/24 08:55 06/20/24 09:00 Temperature 97.9 F Pulse Rate 69 66 67 Respiratory Rate 18 17 17 Blood Pressure 119/83 117/91 H 117/80 Pulse Oximetry 91 91 90 Oxygen Delivery Me thod Face Tent Face Tent Face Tent Oxygen Flow Rate 10 10 10 06/20/24 09:05 06/20/24 09:10 06/20/24 09:15 Temperature 97.9 F Pulse Rate 68 65 63 Respiratory Rate 11 L 14 14 Blood Pressure 117/91 H 109/69 141/96 H Pulse Oximetry 91 94 94 Oxygen Delivery Me thod Face Tent OxyMask OxyMask Oxygen Flow Rate 10 10 10 06/20/24 09:20 06/20/24 09:25 06/20/24 09:25 Temperature 97.9 F Pulse Rate 72 72 69 Respiratory Rate 14 14 16 Blood Pressure 129/64 125/77 119/83 Pulse Oximetry 89 89 85 L Oxygen Delivery Me thod OxyMask OxyMask OxyMask Oxygen Flow Rate 10 10 10 06/20/24 09:30 06/20/24 09:35 06/20/24 09:40 Temperature 97.1 F L Pulse Rate 67 68 67 Respiratory Rate 16 16 11 L Blood Pressure 117/91 H 121/87 121/87 Pulse Oximetry 83 L 82 L 85 L Oxygen Delivery Me thod OxyMask OxyMask OxyMask Oxygen Flow Rate 10 10 10 06/20/24 09:45 06/20/24 09:50 06/20/24 09:55 Temperature Pulse Rate 72 67 69 Respiratory Rate 11 L 14 14 Blood Pressure 129/87 143/86 H 139/80 Pulse Oximetry 87 L 86 L 86 L Oxygen Delivery Me thod OxyMask OxyMask OxyMask Oxygen Flow Rate 10 10 10 06/20/24 10:00 06/20/24 10:05 06/20/24 10:10 Temperature Pulse Rate 70 64 65 Respiratory Rate 13 22 22 Blood Pressure 134/80 135/81 135/81 Pulse Oximetry 87 L 87 L 90 Oxygen Delivery Me thod OxyMask OxyMask OxyMask Oxygen Flow Rate 10 10 10 06/20/24 10:15 06/20/24 10:20 06/20/24 10:25 Temperature 97.3 F L Pulse Rate 68 69 68 Respiratory Rate 21 20 20 Blood Pressure 123/75 123/73 127/78 Pulse Oximetry 91 92 95 Oxygen Delivery Me thod OxyMask OxyMask OxyMask Oxygen Flow Rate 10 10 10 06/20/24 10:30 06/20/24 10:35 06/20/24 10:40 Temperature Pulse Rate 68 77 76 Respiratory Rate 16 16 16 Blood Pressure 127/78 127/72 118/76 Pulse Oximetry 95 95 95 Oxygen Delivery Me thod OxyMask OxyMask OxyMask Oxygen Flow Rate 10 10 10 06/20/24 10:45 Temperature Pulse Rate 73 Respiratory Rate 16 Blood Pressure 119/87 Pulse Oximetry 97 Oxygen Delivery Me thod OxyMask Oxygen Flow Rate 6 Imaging Chest x-ray: Attestation: I have reviewed the pertinent imaging results. Radiologist's impression: RML infiltrate C/W aspiration. Assessment and Plan Assessment and plan (1) Acute respiratory failure with hypoxia: Problem comment: - due to aspiration post-op septoplasty - respiratory therapy consultation - oxygen supplementation with HF O2 and humidification - PCN and cephalosporin allergies, therefore will use levofloxacin for antibiotic coverage for now - bronchodilator PRN Status: Acute (2) Aspiration into airway: Problem comment: - post-op septoplasty 06/20/24 - elevate head of bed Status: Acute (3) Status post nasal septoplasty: Problem comment: - Septoplasty, right kiya bullosa resection, ethmoidectomy, maxillary antrostomy and sphenoid surgery scheduled for 06/20/[address] Melton @ [facility]. Status: Acute (4) Anxiety: Status: Acute (5) Depression: Problem comment: Has previously tried Viibryd and sertraline as well as Celexa Status: Acute Plan 1. Reviewed with Dr. Melton and will care for post-op aspiration while patient warrants in hospital care 2. Dr. Melton will direct post surgical cares 3. Reviewed with patient and her mother, Chanel Talley. Answered their questions. They are agreeable with above stated recommendations and plans. Total Time Spent Total Time Spent: 60 minutes
[2024-06-20] MEDS: LACTATED RINGERS 1000 ML 1,000 ML 35 ML IV (11:10)
--- NOTE | 2024-06-20 11:11 | SUR.PHASEI ---
VIKA GUY MD CONSULTED REGARDING THE OXYGENATION/SATS ON PATIENT. PATIENT WAS GIVEN AN ALBUTERAL NEB TREATMENT. PATIENT APPEARED TO DO BETTER. VIKA GUY MD CONSULTED A 2ND TIME FOR SAT/OXYGENATION STARTING TO DROP AFTER NEB TREATMENT. RACEPINEPHRINE NEB TREATMENT ORDERED AND GIVEN PER . SATS CONTINUED TO BE UNSTABLE. RADIOLOGY ORDERED FOR A CHEST X-RAY. DR. GUY CONSULTED WITH THE HOSPITALIST FOR POTENTIAL HOSPITALIZATION TO MONITOR AND TREAT THE PATIENT RESPIRATORY STATUS. PATIENT AWARE. HAD C/O OF SOME CHEST DISCOMFORT. MD AWARE. DR. GUY CONSULTED FOR C/O OF HEADACHE. FENTANYL GIVEN PER DR. GUY VERBAL ORDER. PATIENT STATED THAT THE HEADACHE WAS MUCH BETTER. PATIENT WAS ADMITTED TO MED/SURG FOR FURTHER TREATMENT. SATS WERE IN THE MID 90S WITHOUT OXYGEN SUPPORT. TRANFERRED ON 3 L NC TO THE FLOOR. PATIENT STATED SHE WAS FEELING BETTER. OTHER VITALS WERE STABLE THROUGHOUT IN THE PACU.
--- NOTE | 2024-06-20 11:15 | W.PM.ENTPROC ---
Procedure Note Date of procedure: 06/20/24 Procedure: Preoperative diagnosis is chronic bilateral ethmoid and maxillary sinusitis, chronic right sphenoid sinusitis, deviated septum, right middle turbinate kiya bullosa Postoperative diagnosis same procedures nasal septoplasty, endoscopic partial resection right middle turbinate kiya bullosa, endoscopic bilateral complete ethmoidectomies, endoscopic bilateral maxillary antrostomies with tissue removal, endoscopic right sphenoidotomy Under general trach anesthesia patient was prepped and draped in usual fashion. A right hemitransfixion incision was made left anterior and posterior tunnels were created. A vertical incision was made through the cartilage and a right posterior tunnel created. The posterior deflected portions of septal bone resected a piece trimmed and returned to intraseptal space. The hemitransfixion was then closed with 4-0 chromic sutures. The inferior turbinates were outfractured. The remainder procedure was done with available assistance of 0 degree endoscopy and image guidance system which had good registration. On the right side the kiya bullosa was incised along its inferior aspect with a 15 blade and the incision completed with the turbinate scissors. No bone was resected but the turbinate was simply crushed with the Silvestre forceps. The inferior quarter the uncinate process was taken down exposing natural ostium to maxillary sinus which was occluded by polyp tissue this was removed and an 8 mm antrostomy created. Some thickened mucosa was removed from the floor of the sinus as well. There were a couple of small polyps in the middle meatus as well in these were resected. The ethmoid bulla was taken down and dissection carried out an anterior to posterior direction removing a moderate amount of polypoid tissue. The sphenoid was entered through the posterior ethmoid. There was no fluid present. The antral window or and max or maxillary antrostomy and ethmoidectomy were completed on the left side in identical fashion with near identical findings. The hemitransfixion was closed with 2 4-0 chromic sutures as mentioned previously and silastic stents secured with 3-0 nylon. Merocel packing was coated in Bactroban and placed in each anterior ethmoid. The patient procedure well was taken recovery in satisfactory condition blood loss was less than 10 mL. Addendum to the note patient has significant desaturation in recovery and was thought to have aspirated. She will be admitted overnight I discussed with patient's family and anesthesia. Hospitalist was also consulted Surgeon: Anish Melton MD
[2024-06-20] MEDS: levoFLOXacin 750 MG TABLET PO (12:28)
[2024-06-20] MEDS: ACETAMINOPHEN 325 MG TABLET 650 MG PO ×2 (13:45→19:52)
--- NOTE | 2024-06-20 13:45 | PC.NURSE ---
End of Shift Note: Patient had septoplasty surgery today and was having trouble keeping her oxygen sats up. Upon arrival to me she was 88% on room air. RT seen patient and we placed her on a face tent to see if o2 sat would stay up she has been 94-96% on this. When she sat up to eat her nose started to drip a little blood. Did place a guaze dressing to see if this would help. No complaints of pain and report has been given to Lyla CASH.
--- NOTE | 2024-06-20 18:49 | PC.NURSE ---
End of shift [id number]: Pt has been A&O, afebrile and VSS. She is up ad harjinder in her room. O2 has maintained > 90% on RA but blow-by face tent provided for humidity. Pt had an increase in bloody drainage from nares after she was up ambulating. 4x4 taped gauze provided for her & has been changed 2x. Ice pack provided for behind her neck which seemed to slow down the drainage. She c/o headache rating it at 4/10 & received PRN Tylenol @ 1345. Tolerating PO intake with no nausea. Reports some mild dizziness while up ambulating. Family at bedside and attentive to patient?s needs. ?
[2024-06-20] MEDS: PROPRANOLOL 20 MG TABLET 10 MG PO (20:47)
[2024-06-20] MEDS: TRAZODONE HCL 50 MG TABLET 150 MG PO (20:48)
[2024-06-20] MEDS: SODIUM CHLORIDE 0.9 % (FLUSH) 10 ML SYRINGE 5 ML IVF (20:49)
[2024-06-21 02:51] VITALS: BP 115/77; PULSE 70; RESP 18; TEMP 36.9; O2SAT 98
[2024-06-21] MEDS: IBUPROFEN 200 MG TABLET PO ×2 (03:22→10:00)
--- NOTE | 2024-06-21 04:50 | PC.NURSE ---
Shift note: Pt is doing doing well. Oxygen given at 6L via blow by until discontinued at 0400. Pt able to maintain O2>95% on room air. Pain, mostly headache rated between 2 and 5. PRN Tylenol and Ibuprofen given. Pt appeared calm, alert, and oriented, ambulated independently in room. Adequate urine output as per chart. Nasal dressing changed 1x. No bleeding except few clot in both nares. Pt had adequate sleep.
[2024-06-21 07:00] VITALS: BP 122/74; PULSE 76; RESP 16; TEMP 36.9; O2SAT 98
[2024-06-21] MEDS: FAMOTIDINE 20 MG TABLET PO (08:11)
[2024-06-21] MEDS: LEVOTHYROXINE 100 MCG TABLET PO (08:11)
--- NOTE | 2024-06-21 09:14 | PC.NURSE ---
shift note: pt ambulated with staff in [place] 200ft with sats maintaining @ 97-98% with no signs of sob
[2024-06-21] MEDS: buPROPion XL 150 MG TABLET PO (09:45)
--- NOTE | 2024-06-21 11:54 | PC.NURSE ---
shift note: iv dc'd intact Rt hand. Reviewed dc instructions and copies sent with pt at dc. Belongings reviewed and sent with pt at dc.
--- NOTE | 2024-06-21 16:22 | PM.DS1 ---
DS: Providers Provider Date Seen: 06/21/24 Primary care physician: Ashley Monahan MD Consults: 06/20/24 11:02 Consult to Respiratory Therapy [CONS] Routine Comment: Reason(s) for RT Consult:: Consult Comment: High Flow O2 with humidity for SaO2 greater than or equal to 90% Attending Physician on discharge: Preet Morris MD Date of Discharge: 06/21/24 DS: Diagnosis Discharge Diagnosis (1) Acute respiratory failure with hypoxia: Status: Acute Problem details: - due to aspiration post-op septoplasty with room air oxygen saturations in the mid 70s on admission - respiratory therapy consultation - oxygen supplementation with HF O2 and humidification, later switched to blow-by oxygen, and on date of discharge room air only with saturations 98-99% at rest and with exertion - PCN and cephalosporin allergies, therefore will use levofloxacin for antibiotic coverage for a total of 5 days - bronchodilator PRN while in hospital (2) Aspiration into airway: Status: Acute Problem details: - post-op septoplasty 06/20/24 - elevate head of bed (3) Status post nasal septoplasty: Status: Acute Problem details: - Septoplasty, right kiya bullosa resection, ethmoidectomy, maxillary antrostomy and sphenoid surgery scheduled for 06/20/[address] Melton @ [facility]. - wound cares per her ENT physician DS: Summary Hospital Course Hospital Course: 34 year old woman who underwent an elective septoplasty, right kiya bullosa resection, ethmoidectomy, maxillary antrostomy and sphenoid surgery on 06/20/[address] Melton at [facility]. Did well intraoperatively. Sometime during the post-operative time she suddenly became hypoxic, with loose sounding cough which she did not have pre-operatively. RA SaO2 in the 90s pre-operatively, then low 80s post-operatively, improved to mid-90s with O2 supplementation. Chest x-ray demonstrated RML infiltrate. Admitted for observation, oxygen support, empiric antibiotic treatment, and bronchodilator therapy. Dr. Melton will continue with her post-operative treatments. I darius continue with her baseline medications. Initially treated with high-flow oxygen and humidification. In a relatively short period of time we will switch to blow-by oxygen. Later she was tolerating room air oxygen and maintaining saturations of 98-99% at rest and with exertion. We initiated levofloxacin in hospital 750 mg on day 1 then 500 mg p.o. daily x4 more days. Given her remarkable recovery, likely patient has aspiration pneumonitis. Nevertheless we will treat for possible aspiration pneumonia as specified. Status at Discharge Functional status at discharge: independent ambulation Overall status at discharge: patient is progressing back to baseline Time Spent with Patient Time attestation: Total time spent providing and/or coordinating discharge services: Time spent: Less than 30 minutes Exam Narrative: Exam Narrative: Examined patient her hospital room in as she ambulates in the halls. Appears comfortable no acute distress. Vision and hearing are adequate. Alert and oriented x4. From the, articulate, cooperative. Nasal packing in place. Lungs remarkably clear to auscultation with some minimal rhonchi that clear with cough. No wheezing or rales. Heart tones with regular rhythm, normal S1-S2. Abdomen benign. Independent transfer, station, and gait. Const: Vital Signs, click to edit/add: Vital Signs - 24 hr 06/20/24 17:55 06/20/24 19:00 06/20/24 22:49 Temperature 96.9 F L Pulse Rate [Pulse Oximeter] 67 76 Respiratory Rate 18 18 Blood Pressure [Ri ght Arm] 128/97 H Pulse Oximetry 99 Oxygen Delivery Me thod Blow By Oxygen Flow Rate 6 Fraction of Inspir ed Oxygen 35 35 06/20/24 22:49 06/21/24 02:51 06/21/24 07:00 Temperature 98.9 F 98.5 F 98.4 F Pulse Rate [Pulse Oximeter] 78 70 76 Respiratory Rate 18 18 16 Blood Pressure [Ri ght Arm] 111/71 115/77 122/74 Pulse Oximetry 98 98 98 Oxygen Delivery Me thod Blow By Blow By Room Air Oxygen Flow Rate 6 6 Fraction of Inspir ed Oxygen 35 35 DS: Data Imaging Chest x-ray: Attestation: I have reviewed the pertinent imaging results. Radiologist's impression: Right middle lobe infiltrate consistent with aspiration. Discharge Plan Discharge Disposition: Home w/ Parent or Adult Discharging Surgeon: Preet Morris Follow-Up Appointment: Kaitlynn 06/24 @ 9:15AM in [place] Prescriptions: New oxycodone 5 mg capsule 5 mg PO Q4-6H PRN (Reason: pain) Qty: 30 0RF ondansetron 4 mg tablet,disintegrating 4 mg PO Q8H Qty: 10 0RF levofloxacin 500 mg Tablet 500 mg PO Q24H 3 Days Qty: 3 0RF Continued diazepam suppository 5 mg vaginal DAILY PRN Rx Instructions: insert vaginally daily as needed Ubrelvy 100 mg tablet PO BID PRN Rx Instructions: for migraines L norgest/e.estradiol-e.estrad 0.15 mg-30 mcg (84)/10 mcg (7) tablets,dose pack,3 month See Rx Instructions PO .COMPLEX Qty: 182 3RF Rx Instructions: take 1 tablet daily following the order on blister card(s) PO melatonin 5 mg capsule 10 mg PO .Bedtime as needed PRN fluticasone propionate [Flonase Allergy Relief] 50 mcg/actuation spray,suspension 2 spray intranasal QDAY PRN Rx Instructions: administer into each nostril Drysol 20 % solution 1 applic topical 2XW PRN (Reason: excessive sweating) Qty: 37.5 12RF desvenlafaxine succinate 100 mg tablet extended release 24 hr 100 mg PO QDAY Qty: 30 12RF propranolol 10 mg tablet 10 mg PO QHS mirtazapine 7.5 mg tablet 7.5 mg PO QHS Qty: 30 1RF Patient Comments: starting after surgery scopolamine base 1 mg over 3 days patch 3 day 1 patch transdermal Q3D PRN bisacodyl [Dulcolax (bisacodyl)] 5 mg tablet,delayed release (DR/EC) 5 mg PO BID PRN levothyroxine 100 mcg tablet 100 mcg PO QAM Qty: 90 3RF famotidine 20 mg tablet 20 mg PO DAILY Qty: 90 1RF bupropion HCl 150 mg tablet extended release 24 hr 150 mg PO QAM Qty: 90 0RF trazodone 100 mg tablet 150 mg PO QHS Qty: 90 0RF Activity Level: No Restrictions and Activity as Tolerated Discharge Diet: Regular Patient Instructions: Oxycodone, Rapid Release (By mouth), Ondansetron (By mouth), Levofloxacin (By mouth) (Levaquin, Levaquin Leva-neil), Care Instructions For Nose and Sinus Surgery Patients Additional Instructions: 1. Keep follow-up appointment with Dr. Melton as already scheduled on 06/24/24, and/or call him sooner if needed. 2. Adhere to post-surgical instructions per Dr. Melton - except DO NOT MERCHANDISING LEAD OR USE DOXYCYCLINE, USE LEVOFLOXACIN PRESCRIBED INSTEAD. 3. Continue with follow-up plans and recommendations per your primary career agent. 4. Return to the clinic or emergency department sooner as warranted. Follow-up: Anish Melton MD [Staff Physician] - 06/24/24 9:15 am ([facility] for follow-up.) Ashley Monahan MD [Primary Care Provider] - Discharge Orders: Discharge Order (Routine); Ordered 06/21/24 Ordered By: Preet Morris
== END 2024-06-21 10:30 | disposition home or self-care (01) ==
LOC: OR 07:22 → MEDSURG 11:05
PROVIDERS: PCP Family Medicine; Visit Provider Otolaryngology
PROC: (CPT 31231; principal; 2024-06-20 07:15)
DX: J32.0 Chronic maxillary sinusitis (principal); J32.2 Chronic ethmoidal sinusitis; J32.3 Chronic sphenoidal sinusitis; J34.2 Deviated nasal septum; J33.8 Other polyp of sinus; J95.821 Acute postprocedural respiratory failure; J69.0 Pneumonitis due to inhalation of food and vomit; J95.89 Other postprocedural complications and disorders of respiratory system, not elsewhere classified; Y84.4 Aspiration of fluid as the cause of abnormal reaction of the patient, or of later complication, without mention of misadventure at the time of the procedure; Y92.234 Operating room of hospital as the place of occurrence of the external cause; R09.02 Hypoxemia; R05.9 Cough, unspecified; F41.9 Anxiety disorder, unspecified; F32.A Depression, unspecified
CPT/HCPCS: 30520; 31240; 31267; 31257; 00160; 71045; 81025; 88305; 94640; A9270; J0330; J1100; J2405; J2704; J3010; J3490; J7120

== ENCOUNTER 2024-08-30 09:53 | Outpatient (CLI) | payer BC, SELFPAY | END 2024-08-30 09:54 | disposition home or self-care (01) | LOC: NFLDREF 09-01 11:24 | PROVIDERS: PCP Family Medicine; Referring Provider Family Medicine; Visit Provider Family Medicine | DX: R19.7 Diarrhea, unspecified (principal) | CPT/HCPCS: 87493 ==

== ENCOUNTER 2024-12-25 14:48 | Outpatient (CLI) | payer BC, SELFPAY | END 2024-12-25 14:49 | disposition home or self-care (01) | PROVIDERS: PCP Family Medicine; Visit Provider Family Medicine | DX: E03.8 Other specified hypothyroidism (principal); D50.9 Iron deficiency anemia, unspecified; R53.82 Chronic fatigue, unspecified; E06.3 Autoimmune thyroiditis; R19.7 Diarrhea, unspecified | CPT/HCPCS: 80053; 82306; 84443 ==

== ENCOUNTER 2025-07-22 07:18 | Outpatient (CLI) | payer BC, SELFPAY | END 2025-07-22 07:19 | disposition home or self-care (01) | LOC: NFLDREF 07-24 15:03 | PROVIDERS: PCP Family Medicine; Referring Provider Family Medicine; Visit Provider Family Medicine | DX: Z00.00 Encounter for general adult medical examination without abnormal findings (principal); E03.8 Other specified hypothyroidism; E06.3 Autoimmune thyroiditis; R53.82 Chronic fatigue, unspecified | CPT/HCPCS: 80053; 84439; 84443 ==

== ENCOUNTER 2025-09-15 10:35 | Outpatient (CLI) | payer BC, SELFPAY | END 2025-09-15 10:36 | disposition home or self-care (01) | LOC: NFLDREF 09-18 09:34 | PROVIDERS: PCP Family Medicine; Referring Provider Family Medicine; Visit Provider Physician Assistant Medical | DX: N30.00 Acute cystitis without hematuria (principal) | CPT/HCPCS: 87086 ==

== ENCOUNTER 2025-09-28 17:02 | Outpatient (CLI) | payer BC, SELFPAY | END 2025-09-28 17:03 | disposition home or self-care (01) | LOC: FRMREF 17:02 | PROVIDERS: PCP Family Medicine; Visit Provider Family Medicine | DX: E03.8 Other specified hypothyroidism (principal); E06.3 Autoimmune thyroiditis; D72.819 Decreased white blood cell count, unspecified | CPT/HCPCS: 84439; 84443 ==

== ENCOUNTER 2025-10-01 12:38 | Outpatient (CLI) | payer BC, SELFPAY ==
--- NOTE | 2025-10-01 13:00 | CRLHL7_ITS ---
For Patients: As a result of the Century Cures Act, medical imaging exams and procedure reports are released immediately into your electronic medical record. You may view this report before your referring provider. If you have questions, please contact your health care provider. CLINICAL INDICATION: Closed fracture of the right foot involving the 4th metatarsal base. COMPARISON IMAGING STUDIES: Radiographs from 09/18/2025. TECHNICAL: Noncontrast MRI of the right forefoot. Axial, sagittal and coronal T1, PD and STIR images. 1.5 Elayne MR scanner. FINDINGS: OSSEOUS STRUCTURES: There is no acute metatarsal bone fracture. Specifically, no acute fracture of the 4th metatarsal bone. No Freiberg`s infraction. JOINT SPACES: TMT articulations are maintained. MTP joint spaces are maintained. Interphalangeal joints are maintained. LIGAMENTS: The Lisfranc ligament is intact. TMT joint alignment is maintained. The collateral ligaments of the MTP joints are intact. TENDONS AND MUSCLES: The flexor and extensor tendons are intact. No muscle atrophy or edema. SOFT TISSUES: Small fluid in the intermetatarsal bursa. No Neely`s neuroma. Plantar aponeurosis at the forefoot level is intact. IMPRESSION: 1. No fracture or significant osseous stress related change. Specifically, the 4th metatarsal bone is intact. 2. Joint spaces are maintained. 3. Small amount of intermetatarsal bursal fluid. No Neely`s neuroma. Dictated by Ang Vázquez MD @ 10/02/2025 9:11:27 AM (Electronically Signed)
== END 2025-10-01 12:39 | disposition home or self-care (01) ==
LOC: MRI 12:38
PROVIDERS: PCP Family Medicine; Visit Provider Podiatrist
DX: S92.901A Unspecified fracture of right foot, initial encounter for closed fracture (principal)
CPT/HCPCS: 73718

== ENCOUNTER 2025-10-09 13:22 | Outpatient (CLI) | payer BC, SELFPAY | END 2025-10-09 13:23 | disposition home or self-care (01) | PROVIDERS: PCP Family Medicine; Visit Provider Podiatrist | DX: M79.671 Pain in right foot (principal) | CPT/HCPCS: 86038; 86200 ==